=== PATIENT | male | born 1945 | race Caucasian/White ===

== ENCOUNTER 2016-08-08 08:00 | Outpatient (CLI) | payer MEDICARE, OTHER | END 2016-08-08 08:01 | disposition home or self-care (01) | DX: I80.209 Phlebitis and thrombophlebitis of unspecified deep vessels of unspecified lower extremity (principal) ==

== ENCOUNTER 2016-08-29 11:08 | Outpatient (CLI) | payer MEDICARE, OTHER | END 2016-08-29 11:09 | disposition home or self-care (01) | DX: I80.209 Phlebitis and thrombophlebitis of unspecified deep vessels of unspecified lower extremity (principal) ==

== ENCOUNTER 2016-09-05 14:35 | Outpatient (CLI) | payer MEDICARE, OTHER | END 2016-09-05 14:36 | disposition home or self-care (01) | DX: I80.209 Phlebitis and thrombophlebitis of unspecified deep vessels of unspecified lower extremity (principal) ==

== ENCOUNTER 2016-09-26 08:00 | Outpatient (CLI) | payer MEDICARE, OTHER | END 2016-09-26 08:01 | disposition home or self-care (01) | DX: I80.209 Phlebitis and thrombophlebitis of unspecified deep vessels of unspecified lower extremity (principal) ==

== ENCOUNTER 2016-10-10 13:54 | Outpatient (CLI) | payer MEDICARE, OTHER | END 2016-10-10 13:55 | disposition home or self-care (01) | DX: I80.209 Phlebitis and thrombophlebitis of unspecified deep vessels of unspecified lower extremity (principal) ==

== ENCOUNTER 2016-10-23 10:28 | Outpatient (CLI) | payer MEDICARE, OTHER | END 2016-10-23 10:29 | disposition home or self-care (01) | DX: I80.209 Phlebitis and thrombophlebitis of unspecified deep vessels of unspecified lower extremity (principal); E11.9 Type 2 diabetes mellitus without complications; I10 Essential (primary) hypertension; E78.1 Pure hyperglyceridemia; F17.210 Nicotine dependence, cigarettes, uncomplicated ==

== ENCOUNTER 2016-11-06 08:00 | Outpatient (CLI) | payer MEDICARE, OTHER | END 2016-11-06 08:01 | disposition home or self-care (01) | DX: I80.209 Phlebitis and thrombophlebitis of unspecified deep vessels of unspecified lower extremity (principal) ==

== ENCOUNTER 2016-11-28 13:23 | Outpatient (CLI) | payer MEDICARE, OTHER | END 2016-11-28 23:59 | disposition home or self-care (01) | DX: I80.209 Phlebitis and thrombophlebitis of unspecified deep vessels of unspecified lower extremity (principal) ==

== ENCOUNTER 2016-12-20 14:17 | Outpatient (CLI) | payer MEDICARE, OTHER | END 2016-12-20 14:18 | disposition home or self-care (01) | LOC: LAB.N 14:17 | PROVIDERS: ATTEND Family Medicine | DX: I80.209 Phlebitis and thrombophlebitis of unspecified deep vessels of unspecified lower extremity (principal) | CPT/HCPCS: 85610 ==

== ENCOUNTER 2016-12-27 13:59 | Outpatient (CLI) | payer MEDICARE, OTHER | END 2016-12-27 14:00 | LOC: LAB.N 13:59 | PROVIDERS: ATTEND Family Medicine | DX: I80.209 Phlebitis and thrombophlebitis of unspecified deep vessels of unspecified lower extremity (principal) | CPT/HCPCS: 85610 ==

== ENCOUNTER 2016-12-27 15:25 | Outpatient (CLI) | payer MEDICARE, OTHER ==
--- NOTE | 2016-12-29 15:45 | XRAY Report ---
LUMBAR SPINE THREE VIEWS: 12/27/2016 CLINICAL HISTORY: Strain of muscle, fascia and tendon of the lower back. COMPARISON: None. FINDINGS: Five [id number] lumbar-type vertebrae are noted. Mild anterior spurring is noted in the lumbar spine. Severe disk space narrowing is noted at L2-3. Moderate to severe disk space narrowing is noted at L3-4, L4-5 and L5-S1. The SI joints show minimal narrowing of the right SI joint. Vascular calcification in the abdominal aorta that appears to outline an aneurysm with an AP diameter of 4.9 cm and a length of 13 cm. There is a stent along the anterior aspect of the aneurysm that appears to extend into the proximal aspect of the right common iliac artery. This represents an iliac artery stent. The size of the aneurysm may have increased since preceding exam of 06/29/2015. A contrast enhanced CT exam of the abdomen and pelvis should be considered for reevaluation of the aneurysm. In addition, there has been progression of degenerative disk disease in the lumbar spine since preceding abdominal and pelvic CT of 06/29/2015. There is increased disk space narrowing at L3-4 and L4-5. IMPRESSION: 1. SIGNIFICANT DEGENERATIVE DISK DISEASE IS NOTED AT L2-3, L3-4, L4-5 AND L5- S1. PROGRESSION OF DEGENERATIVE DISK DISEASE AT L3-4 AND L4-5 IS SEEN COMPARED TO PREVIOUS ABDOMINAL AND PELVIC CT EXAM OF 06/29/2015. 2. 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 THE SIZE OF THE ANEURYSM MAY BE INCREASED SINCE PRECEDING ABDOMINAL AND PELVIC CT EXAM. RECOMMEND A CONTRAST ENHANCED ABDOMINAL AND PELVIC CT BE CONSIDERED FOR REEVALUATION OF THE ABDOMINAL AORTIC ANEURYSM SIZE. 3. RIGHT COMMON ILIAC ARTERY STENT IS ONCE AGAIN NOTED IN PLACE. JOB #: [id number] EXT JOB #: [id number] NINA
== END 2016-12-27 15:26 | disposition home or self-care (01) ==
LOC: DI.N 15:25
PROVIDERS: ATTEND Family Medicine
DX: M51.36 Other intervertebral disc degeneration, lumbar region (principal); M51.37 Other intervertebral disc degeneration, lumbosacral region; I71.4 Abdominal aortic aneurysm, without rupture
CPT/HCPCS: 72100; 85610

== ENCOUNTER 2017-01-02 08:00 | Outpatient (CLI) | payer MEDICARE, OTHER | END 2017-01-02 08:01 | disposition home or self-care (01) | LOC: LAB.N 08:00 | PROVIDERS: ATTEND Family Medicine | DX: I80.209 Phlebitis and thrombophlebitis of unspecified deep vessels of unspecified lower extremity (principal) | CPT/HCPCS: 85610 ==

== ENCOUNTER 2017-01-10 12:59 | Outpatient (CLI) | payer MEDICARE, OTHER | END 2017-01-10 13:00 | disposition home or self-care (01) | LOC: LAB.N 12:59 | PROVIDERS: ATTEND Family Medicine | DX: I80.209 Phlebitis and thrombophlebitis of unspecified deep vessels of unspecified lower extremity (principal) | CPT/HCPCS: 85610 ==

== ENCOUNTER 2017-01-18 16:53 | Outpatient (CLI) | payer MEDICARE, OTHER ==
--- NOTE | 2017-01-19 10:53 | Ultrasound Report ---
AORTA DUPLEX: 01/18/2017 CLINICAL INDICATION: Aneurysm. The patient also reports history of aortobi-femoral bypass grafting. TECHNIQUE: Real-time sonographic vascular imaging was performed by the work and family life consultant through the aorta utilizing both color-flow and Doppler spectral analysis. Multiple dairy supplies sales representative static images were saved for review. FINDINGS: The abdominal aorta measures 2.2 cm proximally, and 2.0 cm in the mid portion. An aortobi -femoral bypass graft is noted. There is aneurysmal dilatation of the distal abdominal aorta, measur ing up to 4.6 cm in caliber, but no flow is seen in this portion of the abdominal aorta, which is dis klaudia to the takeoff of the bypass graft. The iliac grafts are normal in caliber. The [place] iliacs a re not well visualized. Velocities are unremarkable. No free fluid is seen. IMPRESSION: PREVIOUS AORTOBI-FEMORAL BYPASS GRAFT. ANEURYSMAL DILATATION OF THE DISTAL ABDOMINAL AO RTA, BUT THERE IS NO EVIDENCE OF FLOW IN THE DISTAL ABDOMINAL AORTIC ANEURYSM, WHICH IS DISTAL TO THE TAKEOFF OF THE AORTOBI-FEMORAL BYPASS GRAFT. JOB #: [id number] EXT JOB #:[id number]
== END 2017-01-18 16:54 | disposition home or self-care (01) ==
LOC: DI 16:53
PROVIDERS: ATTEND Family Medicine
DX: I71.4 Abdominal aortic aneurysm, without rupture (principal)
CPT/HCPCS: 93979

== ENCOUNTER 2017-01-23 08:00 | Outpatient (CLI) | payer MEDICARE, OTHER | END 2017-01-23 08:01 | disposition home or self-care (01) | LOC: LAB.N 08:00 | PROVIDERS: ATTEND Family Medicine | DX: I80.209 Phlebitis and thrombophlebitis of unspecified deep vessels of unspecified lower extremity (principal) | CPT/HCPCS: 85610 ==

== ENCOUNTER 2017-01-25 16:10 | Emergency (ER) | payer MEDICARE, OTHER ==
[2017-01-25 16:24] VITALS: BP 120/73
[2017-01-25 16:52] LABS: INR 1.3 (0.8-1.2); PT - PROTHROMBIN TIME 14.6 secs (9.9-12.6)
--- NOTE | 2017-01-25 17:45 | Ultrasound Preliminary Report ---
Exam: US Duplex Ext Veins Left IMPRESSION: No evidence for deep venous thrombosis. [facility] SITE ID: [id number]
--- NOTE | 2017-01-25 17:47 | Ultrasound Report ---
EXAM: LEFT LOWER EXTREMITY VENOUS ULTRASOUND EXAM DATE: 01/25/2017 05:20 PM. CLINICAL HISTORY: LLE pain. COMPARISON: None. TECHNIQUE: Real-time sonographic vascular imaging was performed by the editor school photograph through the lower extremity utilizing both color-flow and Doppler spectral analysis. Multiple fulfillment representative static terrance ges were saved for review. FINDINGS: Common Femoral Vein (CFV): Normal. CFV-GSV Junction: Normal. Profunda Femoral Vein (PFV): Normal. Femoral Vein (FV) Prox: Normal. Femoral Vein (FV) Mid: Normal. Femoral Vein (FV) Dist: Normal. Popliteal Vein: Normal. Posterior Tibial Veins: Normal. Peroneal Veins: Normal. Contralateral Side CFV: Normal. Other: None. IMPRESSION: No evidence for deep venous thrombosis. [facility] Referring Provider Line: [phone] SITE ID: [id number]
--- NOTE | 2017-01-25 17:56 | ED Physician Documentation ---
History of Present Illness - Stated complaint Stated Complaint: LLE PAIN - Chief complaint Chief Complaint: General - History obtained from History obtained from: Patient, Family - History of Present Illness Timing: How many weeks ago (1) Pain level max: 3 Pain level now: 2 Improved by: rest Worsened by: movement - Additonal information Additional information: Patient is a 71-year-old male who presents to the emergency department with left calf pain for the past week. Has had blood clots in the right lower extremity before and is on warfarin currently. His INR was 4.1, 2 days ago, so he stopped his warfarin for the last 2 days. States he is concerned that he may have another blood clot in the left lower extremity. No chest pain. No shortness of breath. Review of Systems Ten Systems: 10 systems reviewed and negative Constitutional: denies: Fever, Chills Nose: denies: Rhinorrhea / runny nose, Congestion Throat: denies: Sore throat Cardiac: denies: Chest pain / pressure, Palpitations Respiratory: denies: Dyspnea, Cough, Wheezing GI: denies: Abdominal Pain, Nausea, Vomiting, Diarrhea Skin: denies: Rash Musculoskeletal: denies: Neck pain, Back pain Neurologic: denies: Headache PD PAST MEDICAL HISTORY - Past Medical History Cardiovascular: Hypertension, High cholesterol, Peripheral Vascular Disease, Deep vein thrombosis Respiratory: COPD, Other Neuro: Peripheral neuropathy Endocrine/Autoimmune: Type 2 diabetes GI: GI bleed, Ulcers : None HEENT: Chronic vision loss Musculoskeletal: Osteoarthritis, Chronic back pain Derm: Other - Past Surgical History Past Surgical History: Yes General: Bowel surgery, EGD Ortho: Amputation /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: Other Cardiovascular: CABG, Coronary stent, Cardiac catheterization, Vascular surgery , Angioplasty, Fempop bypass, Other - Present Medications Home Medications: Ambulatory Orders Medication Instructions Recorded Confirmed Aspirin [Aspir 81] 81 mg PO BID 10/02/13 11/13/14 Gemfibrozil [Lopid] 600 mg PO BIDAC 10/02/13 11/13/14 Lisinopril 10 mg PO HS 10/02/13 11/13/14 Sertraline [Zoloft] 100 mg PO DAILY 10/02/13 11/13/14 Warfarin Sodium [Coumadin] 9 mg PO HS 10/02/13 11/13/14 Bisacodyl [Laxative] 1 ea PO QPM PRN 02/23/14 11/13/14 Calcium Carbonate [Calcium] 600 mg PO BID 02/23/14 11/13/14 raNITIdine [Zantac] 150 mg PO DAILY PRN 02/23/14 11/13/14 Albuterol Sulfate [Albuterol 1 inh INH Q4HR 11/13/14 11/13/14 Sulfate Hfa] Enoxaparin [Lovenox] 1 syr SQ DAILY 11/13/14 11/13/14 Fenofibrate 1 tab PO DAILY 11/13/14 11/13/14 [place]-3/Dha/Epa/Fish Oil [Fish Oil] 2 tab PO DAILY 11/13/14 11/13/14 Pravastatin Sodium 40 mg PO DAILY 11/13/14 11/13/14 Tiotropium [place] [Spiriva] 1 inh INH DAILY 11/13/14 11/13/14 - Allergies Allergies/Adverse Reactions: Allergies Allergy/AdvReac Type Severity Reaction Status Date / Time ezetimibe [From Zetia] Allergy Mild Itching Verified 01/25/17 16:24 methocarbamol [From Robaxin] Allergy resp Verified 01/25/17 16:24 morphine Allergy itches Verified 01/25/17 16:24 vancomycin Allergy Unknown Verified 01/25/17 16:24 atorvastatin calcium * AdvReac Intermediate Unknown Verified 01/25/17 16:24 [From Lipitor] simvastatin [From Zocor] AdvReac Intermediate Unknown Verified 01/25/17 16:24 tape adhesive Allergy Itching Uncoded 01/25/17 16:24 - Social History Does the pt smoke?: Yes Smoking Status: Current every day smoker Does the pt drink ETOH?: No Does the pt have substance abuse?: No - POLST Patient has POLST: No PD ED PE NORMAL - Vitals Vital signs reviewed: Yes - General General: Alert and oriented X 3, No acute distress, Well developed/nourished - HEENT HEENT: Moist mucous membranes - Neck Neck: Supple, no meningeal sign - Cardiac Cardiac: RRR, Strong equal pulses - Respiratory Respiratory: No respiratory distress, Clear bilaterally - Abdomen Abdomen: Soft, Non tender, Non distended - Derm Derm: Warm and dry - Extremities Extremities: Normal ROM s pain, No edema, No calf tenderness / cord - Neuro Neuro: Alert and oriented X 3 - Psych Psych: Normal mood, Normal affect Results - Vitals Vitals: Vital Signs - 24 hr 01/25/17 16:18 Temperature 36.7 C Heart Rate 69 Respiratory 18 Rate Blood Pressure 120/73 O2 Saturation 97 Oxygen O2 Source Room air - Labs Labs: Laboratory Tests 01/25/17 16:39 PT 14.6 H INR 1.3 H - Rads (name of study) Left lower extremity duplex ultrasound Radiology: Prelim report reviewed, EMP read contemporaneously, See rad report ( No DVT) PD MEDICAL DECISION MAKING - ED course Complexity details: reviewed results, re-evaluated patient, considered differential, d/w patient, d/w family ED course: Patient is a 71-year-old gentleman who presents to the emergency department with left calf pain for the past week. This is been mostly intermittent and cramping. Concerned as he has had DVTs in the right lower extremity before. He has held his warfarin for the last 2 days and will restart this tonight. No acute findings on ultrasound. Ambulating well in the emergency department. Will hold any further blood work or testing at this time and see how he progresses over the next few days. Patient and family counseled regarding signs and symptoms for which I believe and urgent re-evaluation would be necessary. Patient with good understanding of and agreement to plan and is comfortable going home at this time This document was made in part using voice recognition software. While efforts are made to proofread this document, sound alike and grammatical errors may occur. Departure - Departure Disposition: 01 Home, Self Care Clinical Impression: Muscle cramp Condition: Good Instructions: ED Muscle Pain Leg Cramps Follow-Up: your,doctor in 1 week [Other] Comments: Restart your warfarin today. Return if you worsen. Your ultrasound is normal today Discharge Date/Time: 01/25/17 18:15
== END 2017-01-25 18:15 | disposition home or self-care (01) ==
LOC: ED 16:10
DX: R25.2 Cramp and spasm (principal); Z87.11 Personal history of peptic ulcer disease; Z86.718 Personal history of other venous thrombosis and embolism; Z79.01 Long term (current) use of anticoagulants; I10 Essential (primary) hypertension; E78.00 Pure hypercholesterolemia, unspecified; E11.51 Type 2 diabetes mellitus with diabetic peripheral angiopathy without gangrene; E11.42 Type 2 diabetes mellitus with diabetic polyneuropathy; J44.9 Chronic obstructive pulmonary disease, unspecified; M19.90 Unspecified osteoarthritis, unspecified site; Z79.82 Long term (current) use of aspirin; F17.200 Nicotine dependence, unspecified, uncomplicated
CPT/HCPCS: 36415; 85610; 99283

== ENCOUNTER 2017-01-31 13:35 | Outpatient (CLI) | payer MEDICARE, OTHER | END 2017-01-31 13:36 | disposition home or self-care (01) | LOC: LAB.N 13:35 | PROVIDERS: ATTEND Family Medicine | DX: I80.209 Phlebitis and thrombophlebitis of unspecified deep vessels of unspecified lower extremity (principal) | CPT/HCPCS: 85610 ==

== ENCOUNTER 2017-02-07 23:56 | Outpatient (CLI) | payer MEDICARE, OTHER | END 2017-02-07 23:57 | disposition home or self-care (01) | LOC: LAB.N 23:56 | PROVIDERS: ATTEND Family Medicine | DX: I80.209 Phlebitis and thrombophlebitis of unspecified deep vessels of unspecified lower extremity (principal) | CPT/HCPCS: 85610 ==

== ENCOUNTER 2017-02-14 13:52 | Outpatient (CLI) | payer MEDICARE, OTHER | END 2017-02-14 13:53 | LOC: LAB.N 13:52 | PROVIDERS: ATTEND Family Medicine | DX: I80.209 Phlebitis and thrombophlebitis of unspecified deep vessels of unspecified lower extremity (principal) | CPT/HCPCS: 85610 ==

== ENCOUNTER 2017-02-19 08:14 | Outpatient (CLI) | payer MEDICARE, OTHER | END 2017-02-19 08:15 | disposition home or self-care (01) | LOC: LAB.N 08:14 | PROVIDERS: ATTEND Family Medicine | DX: I80.209 Phlebitis and thrombophlebitis of unspecified deep vessels of unspecified lower extremity (principal) | CPT/HCPCS: 85610 ==

== ENCOUNTER 2017-02-26 13:16 | Outpatient (CLI) | payer MEDICARE, OTHER | END 2017-02-26 23:59 | disposition home or self-care (01) | LOC: LAB.N 13:16 | PROVIDERS: ATTEND Family Medicine | DX: I80.209 Phlebitis and thrombophlebitis of unspecified deep vessels of unspecified lower extremity (principal) | CPT/HCPCS: 85610 ==

== ENCOUNTER 2017-03-07 08:00 | Outpatient (CLI) | payer MEDICARE, OTHER | END 2017-03-07 08:01 | disposition home or self-care (01) | LOC: LAB.N 08:00 | PROVIDERS: ATTEND Family Medicine | DX: I80.209 Phlebitis and thrombophlebitis of unspecified deep vessels of unspecified lower extremity (principal) | CPT/HCPCS: 85610 ==

== ENCOUNTER 2017-03-12 08:00 | Outpatient (CLI) | payer MEDICARE, OTHER | END 2017-03-12 08:01 | disposition home or self-care (01) | LOC: LAB.N 08:00 | PROVIDERS: ATTEND Family Medicine | DX: I80.209 Phlebitis and thrombophlebitis of unspecified deep vessels of unspecified lower extremity (principal) | CPT/HCPCS: 85610 ==

== ENCOUNTER 2017-03-19 08:00 | Outpatient (CLI) | payer MEDICARE, OTHER | END 2017-03-19 08:01 | disposition home or self-care (01) | LOC: LAB.N 08:00 | PROVIDERS: ATTEND Family Medicine | DX: I80.209 Phlebitis and thrombophlebitis of unspecified deep vessels of unspecified lower extremity (principal) | CPT/HCPCS: 85610 ==

== ENCOUNTER 2017-04-05 11:22 | Outpatient (CLI) | payer MEDICARE, OTHER | END 2017-04-05 11:23 | disposition home or self-care (01) | LOC: LAB.N 11:22 | PROVIDERS: ATTEND Family Medicine | DX: I80.209 Phlebitis and thrombophlebitis of unspecified deep vessels of unspecified lower extremity (principal) | CPT/HCPCS: 85610 ==

== ENCOUNTER 2017-04-19 13:42 | Outpatient (CLI) | payer MEDICARE, OTHER | END 2017-04-19 13:43 | LOC: LAB.N 13:42 | PROVIDERS: ATTEND Family Medicine | DX: I80.209 Phlebitis and thrombophlebitis of unspecified deep vessels of unspecified lower extremity (principal) | CPT/HCPCS: 85610 ==

== ENCOUNTER 2017-05-15 08:00 | Outpatient (CLI) | payer MEDICARE, OTHER | END 2017-05-15 08:01 | disposition home or self-care (01) | LOC: LAB.N 08:00 | PROVIDERS: ATTEND Family Medicine | DX: I80.209 Phlebitis and thrombophlebitis of unspecified deep vessels of unspecified lower extremity (principal) | CPT/HCPCS: 85610 ==

== ENCOUNTER 2017-06-29 08:00 | Outpatient (CLI) | payer MEDICARE, OTHER ==
[2017-06-29 14:43] LABS: BASOPHILS # (AUTO) 0.1 10^3/uL (0.0-0.1); BASOPHILS % (AUTO) 0.7 %; EOSINOPHILS # (AUTO) 0.1 10^3/uL (0.0-0.7); EOSINOPHILS % (AUTO) 1.2 %; HGB - HEMOGLOBIN 17.8 g/dL (14.0-18.0); LYMPHOCYTES % (AUTO) 28.5 %; MEAN CORPUSCULAR HEMOGLOBIN 31.8 pg (27.0-31.0); MEAN CORPUSCULAR HGB CONC 34.3 g/dL (32.0-36.0); MEAN CORPUSCULAR VOLUME 92.8 fL (80.0-94.0); MONOCYTES # (AUTO) 0.7 10^3/uL (0.0-1.0); MONOCYTES % (AUTO) 6.9 %; NEUTROPHILS # (AUTO) 6.5 10^3/uL (1.5-6.6); NEUTROPHILS % (AUTO) 62.7 %; NUCLEATED RED BLOOD CELLS AUTO 0.1 /100WBC; RED CELL DISTRIBUTION WIDTH 13.6 % (12.0-15.0); UNCORRECTED WHITE BLOOD COUNT 10.4 x10^3/uL; WHITE BLOOD COUNT 10.4 x10^3/uL (4.8-10.8)
== END 2017-06-29 08:01 | disposition home or self-care (01) ==
LOC: LAB.N 08:00
PROVIDERS: ATTEND Radiology Vascular & Interventional Radiology
DX: I72.4 Aneurysm of artery of lower extremity (principal); I80.209 Phlebitis and thrombophlebitis of unspecified deep vessels of unspecified lower extremity
CPT/HCPCS: 36415; 85025; 85610

== ENCOUNTER 2017-07-06 11:23 | Outpatient (CLI) | payer MEDICARE, OTHER | END 2017-07-06 11:24 | disposition home or self-care (01) | LOC: LAB.N 11:23 | PROVIDERS: ATTEND Family Medicine | DX: I80.209 Phlebitis and thrombophlebitis of unspecified deep vessels of unspecified lower extremity (principal) | CPT/HCPCS: 85610 ==

== ENCOUNTER 2017-07-09 09:50 | Outpatient (CLI) | payer MEDICARE, OTHER | END 2017-07-09 09:51 | disposition home or self-care (01) | LOC: LAB.N 09:50 | PROVIDERS: ATTEND Family Medicine | DX: I80.209 Phlebitis and thrombophlebitis of unspecified deep vessels of unspecified lower extremity (principal) | CPT/HCPCS: 85610 ==

== ENCOUNTER 2017-07-11 10:18 | Outpatient (CLI) | payer MEDICARE, OTHER | END 2017-07-11 10:19 | disposition home or self-care (01) | LOC: LAB.N 10:18 | PROVIDERS: ATTEND Family Medicine | DX: I80.209 Phlebitis and thrombophlebitis of unspecified deep vessels of unspecified lower extremity (principal) | CPT/HCPCS: 85610 ==

== ENCOUNTER 2017-07-13 10:43 | Outpatient (CLI) | payer MEDICARE, OTHER | END 2017-07-13 10:44 | disposition home or self-care (01) | LOC: LAB.N 10:43 | PROVIDERS: ATTEND Family Medicine | DX: I80.209 Phlebitis and thrombophlebitis of unspecified deep vessels of unspecified lower extremity (principal) | CPT/HCPCS: 85610 ==

== ENCOUNTER 2017-07-16 09:54 | Outpatient (CLI) | payer MEDICARE, OTHER | END 2017-07-16 09:55 | disposition home or self-care (01) | LOC: LAB.N 09:54 | PROVIDERS: ATTEND Family Medicine | DX: I80.209 Phlebitis and thrombophlebitis of unspecified deep vessels of unspecified lower extremity (principal) | CPT/HCPCS: 85610 ==

== ENCOUNTER 2017-07-23 10:16 | Outpatient (CLI) | payer MEDICARE, OTHER | END 2017-07-23 10:17 | disposition home or self-care (01) | LOC: LAB.N 10:16 | PROVIDERS: ATTEND Family Medicine | DX: I80.209 Phlebitis and thrombophlebitis of unspecified deep vessels of unspecified lower extremity (principal) | CPT/HCPCS: 85610 ==

== ENCOUNTER 2017-08-07 08:00 | Outpatient (CLI) | payer MEDICARE, OTHER | END 2017-08-07 08:01 | disposition home or self-care (01) | LOC: LAB.N 08:00 | PROVIDERS: ATTEND Family Medicine | DX: I80.209 Phlebitis and thrombophlebitis of unspecified deep vessels of unspecified lower extremity (principal) | CPT/HCPCS: 85610 ==

== ENCOUNTER 2017-08-14 14:57 | Outpatient (CLI) | payer MEDICARE, OTHER | END 2017-08-14 14:58 | disposition home or self-care (01) | LOC: LAB.N 14:57 | PROVIDERS: ATTEND Family Medicine | DX: I80.209 Phlebitis and thrombophlebitis of unspecified deep vessels of unspecified lower extremity (principal) | CPT/HCPCS: 85610 ==

== ENCOUNTER 2017-08-28 08:00 | Outpatient (CLI) | payer MEDICARE, OTHER | END 2017-08-28 08:01 | disposition home or self-care (01) | LOC: LAB.N 08:00 | PROVIDERS: ATTEND Family Medicine | DX: I80.209 Phlebitis and thrombophlebitis of unspecified deep vessels of unspecified lower extremity (principal) | CPT/HCPCS: 85610 ==

== ENCOUNTER 2017-09-11 08:00 | Outpatient (CLI) | payer MEDICARE, OTHER | END 2017-09-11 08:01 | disposition home or self-care (01) | LOC: LAB.N 08:00 | PROVIDERS: ATTEND Family Medicine | DX: I80.209 Phlebitis and thrombophlebitis of unspecified deep vessels of unspecified lower extremity (principal) | CPT/HCPCS: 85610 ==

== ENCOUNTER 2017-09-18 08:00 | Outpatient (CLI) | payer MEDICARE, OTHER | END 2017-09-18 08:01 | disposition home or self-care (01) | LOC: LAB.N 08:00 | PROVIDERS: ATTEND Family Medicine | DX: I80.209 Phlebitis and thrombophlebitis of unspecified deep vessels of unspecified lower extremity (principal) | CPT/HCPCS: 85610 ==

== ENCOUNTER 2017-10-02 10:21 | Outpatient (CLI) | payer MEDICARE, OTHER | END 2017-10-02 10:22 | disposition home or self-care (01) | LOC: LAB.N 10:21 | PROVIDERS: ATTEND Family Medicine | DX: I80.209 Phlebitis and thrombophlebitis of unspecified deep vessels of unspecified lower extremity (principal) | CPT/HCPCS: 85610 ==

== ENCOUNTER 2017-10-04 08:00 | Outpatient (CLI) | payer MEDICARE, OTHER ==
[2017-10-04 19:07] LABS: BASOPHILS # (AUTO) 0.1 10^3/uL (0.0-0.1); BASOPHILS % (AUTO) 0.7 %; EOSINOPHILS # (AUTO) 0.2 10^3/uL (0.0-0.7); EOSINOPHILS % (AUTO) 1.6 %; HGB - HEMOGLOBIN 17.4 g/dL (14.0-18.0); LYMPHOCYTES # (AUTO) 3.4 10^3/uL (1.5-3.5); MEAN CORPUSCULAR HGB CONC 33.1 g/dL (32.0-36.0); MEAN CORPUSCULAR VOLUME 93.4 fL (80.0-94.0); MEAN PLATELET VOLUME 8.5 fL (7.4-11.4); MONOCYTES # (AUTO) 0.7 10^3/uL (0.0-1.0); NEUTROPHILS # (AUTO) 5.1 10^3/uL (1.5-6.6); NEUTROPHILS % (AUTO) 54.7 %; PLT - PLATELET COUNT 212 10^3/uL (130-450); RED BLOOD COUNT 5.62 10^6/uL (4.70-6.10); RED CELL DISTRIBUTION WIDTH 14.4 % (12.0-15.0); WHITE BLOOD COUNT 9.3 x10^3/uL (4.8-10.8)
[2017-10-05 10:05] LABS: ALBUMIN/GLOBULIN RATIO 1.3 (1.0-2.2); ALKALINE PHOSPHATASE 60 IU/L (42-121); ALT ALANINE AMINOTRANSFERASE 30 IU/L (10-60); AST ASPARTATE AMINOTRANSFERASE 24 IU/L (10-42); BILIRUBIN,TOTAL 0.5 mg/dL (0.2-1.0); BUN - BLOOD UREA NITROGEN 16 mg/dL (6-20); CALCIUM 9.1 mg/dL (8.5-10.3); CARBON DIOXIDE - CO2 28 mmol/L (21-32); CHLORIDE 105 mmol/L (101-111); CHOL/HDL RATIO 5.3 (<5.0); CHOLESTEROL 164 mg/dL; CREATININE 0.8 mg/dL (0.6-1.2); GFR - MDRD 95 (>89); GLUCOSE 98 mg/dL (70-100); HDL CHOLESTEROL 31 mg/dL; LDL CHOLESTEROL,CALCULATED 100 mg/dL; LDL/HDL RATIO 3.2 (<3.6); SODIUM 140 mmol/L (135-145); TOTAL PROTEIN 7.2 g/dL (6.7-8.2); VLDL CHOLESTEROL 33 mg/dL
[2017-10-05 10:18] LABS: HEMOGLOBIN A1C 0.82 g/dL; HEMOGLOBIN A1C % 6.1 % (4.6-6.2)
== END 2017-10-04 23:59 | disposition home or self-care (01) ==
LOC: LAB.N 08:00
PROVIDERS: ATTEND Family Medicine
DX: E11.9 Type 2 diabetes mellitus without complications (principal); I10 Essential (primary) hypertension; E78.1 Pure hyperglyceridemia
CPT/HCPCS: 36415; 80053; 80061; 83036; 83721; 85025

== ENCOUNTER 2017-10-25 11:02 | Outpatient (CLI) | payer MEDICARE, OTHER ==
--- NOTE | 2017-10-25 16:41 | XRAY Report ---
THREE VIEW LUMBAR SPINE: 10/25/2017 CLINICAL INDICATION: Chronic back pain. COMPARISON: 12/27/2016. FINDINGS: AP, lateral, coned down views of the lumbar spine demonstrate moderate degenerative disk and facet disease. There is no evidence of interval compression fracture. Vascular calcifications are again noted. The bowel gas pattern appears unremarkable. IMPRESSION: MODERATE DEGENERATIVE CHANGES. NO EVIDENCE OF FRACTURE. TD: 10/25/2017 16:41
== END 2017-10-25 11:03 | disposition home or self-care (01) ==
LOC: DI.N 11:02
PROVIDERS: ATTEND Family Medicine
DX: M51.36 Other intervertebral disc degeneration, lumbar region (principal); M47.896 Other spondylosis, lumbar region
CPT/HCPCS: 72100

== ENCOUNTER 2017-10-30 10:09 | Outpatient (CLI) | payer MEDICARE, OTHER | END 2017-10-30 10:10 | disposition home or self-care (01) | LOC: LAB.N 10:09 | PROVIDERS: ATTEND Family Medicine | DX: I80.209 Phlebitis and thrombophlebitis of unspecified deep vessels of unspecified lower extremity (principal) | CPT/HCPCS: 85610 ==

== ENCOUNTER 2017-11-06 10:36 | Outpatient (CLI) | payer MEDICARE, OTHER | END 2017-11-06 10:37 | disposition home or self-care (01) | LOC: LAB.N 10:36 | PROVIDERS: ATTEND Family Medicine | DX: I80.209 Phlebitis and thrombophlebitis of unspecified deep vessels of unspecified lower extremity (principal) | CPT/HCPCS: 85610 ==

== ENCOUNTER 2017-11-13 08:00 | Outpatient (CLI) | payer MEDICARE, OTHER | END 2017-11-13 08:01 | disposition home or self-care (01) | LOC: LAB.N 08:00 | PROVIDERS: ATTEND Family Medicine | DX: I80.209 Phlebitis and thrombophlebitis of unspecified deep vessels of unspecified lower extremity (principal) | CPT/HCPCS: 85610 ==

== ENCOUNTER 2017-11-27 08:00 | Outpatient (CLI) | payer MEDICARE, OTHER | END 2017-11-27 08:01 | disposition home or self-care (01) | LOC: LAB.N 08:00 | PROVIDERS: ATTEND Family Medicine | DX: I80.209 Phlebitis and thrombophlebitis of unspecified deep vessels of unspecified lower extremity (principal) | CPT/HCPCS: 85610 ==

== ENCOUNTER 2017-12-11 11:30 | Outpatient (CLI) | payer MEDICARE, OTHER | END 2017-12-11 11:45 | disposition home or self-care (01) | LOC: RT.N 11:30 | PROVIDERS: ATTEND Family Medicine | DX: R55 Syncope and collapse (principal) | CPT/HCPCS: 93005 ==

== ENCOUNTER 2017-12-12 12:57 | Outpatient (CLI) | payer MEDICARE, OTHER ==
[2017-12-12 18:55] LABS: BASOPHILS # (AUTO) 0.1 10^3/uL (0.0-0.1); BASOPHILS % (AUTO) 0.6 %; EOSINOPHILS # (AUTO) 0.2 10^3/uL (0.0-0.7); EOSINOPHILS % (AUTO) 1.7 %; HGB - HEMOGLOBIN 16.8 g/dL (14.0-18.0); LYMPHOCYTES # (AUTO) 3.1 10^3/uL (1.5-3.5); LYMPHOCYTES % (AUTO) 32.5 %; MEAN CORPUSCULAR HEMOGLOBIN 31.7 pg (27.0-31.0); MEAN CORPUSCULAR HGB CONC 33.9 g/dL (32.0-36.0); MEAN CORPUSCULAR VOLUME 93.6 fL (80.0-94.0); MEAN PLATELET VOLUME 8.7 fL (7.4-11.4); MONOCYTES # (AUTO) 0.6 10^3/uL (0.0-1.0); MONOCYTES % (AUTO) 6.9 %; NEUTROPHILS # (AUTO) 5.5 10^3/uL (1.5-6.6); NEUTROPHILS % (AUTO) 58.3 %; PLT - PLATELET COUNT 215 10^3/uL (130-450); RED BLOOD COUNT 5.31 10^6/uL (4.70-6.10); RED CELL DISTRIBUTION WIDTH 14.4 % (12.0-15.0); WHITE BLOOD COUNT 9.4 x10^3/uL (4.8-10.8)
[2017-12-12 19:13] LABS: HB2 TOTAL 19.4 g/dL; HEMOGLOBIN A1C 0.77 g/dL; HEMOGLOBIN A1C % 5.8 % (4.6-6.2)
[2017-12-12 19:23] LABS: ALBUMIN 3.9 g/dL (3.2-5.5); ALBUMIN/GLOBULIN RATIO 1.2 (1.0-2.2); ALKALINE PHOSPHATASE 58 IU/L (42-121); ALT ALANINE AMINOTRANSFERASE 18 IU/L (10-60); AST ASPARTATE AMINOTRANSFERASE 18 IU/L (10-42); BILIRUBIN,TOTAL 0.7 mg/dL (0.2-1.0); BUN - BLOOD UREA NITROGEN 16 mg/dL (6-20); CALCIUM 8.7 mg/dL (8.5-10.3); CARBON DIOXIDE - CO2 27 mmol/L (21-32); CHLORIDE 104 mmol/L (101-111); CHOL/HDL RATIO 6.4 (<5.0); CHOLESTEROL 187 mg/dL; CREATININE 0.7 mg/dL (0.6-1.2); GFR - MDRD 111 (>89); GLUCOSE 92 mg/dL (70-100); HDL CHOLESTEROL 29 mg/dL; LDL CHOLESTEROL,CALCULATED 122 mg/dL; LDL/HDL RATIO 4.2 (<3.6); SODIUM 139 mmol/L (135-145); TOTAL PROTEIN 7.2 g/dL (6.7-8.2); VLDL CHOLESTEROL 36 mg/dL
== END 2017-12-12 12:58 | disposition home or self-care (01) ==
LOC: LAB.N 12:57
PROVIDERS: ATTEND Family Medicine
DX: E11.9 Type 2 diabetes mellitus without complications (principal); E78.1 Pure hyperglyceridemia; I80.209 Phlebitis and thrombophlebitis of unspecified deep vessels of unspecified lower extremity; I10 Essential (primary) hypertension
CPT/HCPCS: 36415; 80053; 80061; 83036; 83721; 85025; 85610

== ENCOUNTER 2017-12-14 13:01 | Outpatient (CLI) | payer MEDICARE, OTHER | END 2017-12-14 13:02 | disposition home or self-care (01) | LOC: LAB.N 13:01 | PROVIDERS: ATTEND Family Medicine | DX: I80.209 Phlebitis and thrombophlebitis of unspecified deep vessels of unspecified lower extremity (principal) | CPT/HCPCS: 85610 ==

== ENCOUNTER 2017-12-24 08:00 | Outpatient (CLI) | payer MEDICARE, OTHER | END 2017-12-24 08:01 | LOC: LAB.N 08:00 | PROVIDERS: ATTEND Family Medicine | DX: I80.209 Phlebitis and thrombophlebitis of unspecified deep vessels of unspecified lower extremity (principal) | CPT/HCPCS: 85610 ==

== ENCOUNTER 2018-01-08 08:00 | Outpatient (CLI) | payer MEDICARE, OTHER | END 2018-01-08 08:01 | disposition home or self-care (01) | LOC: LAB.N 08:00 | PROVIDERS: ATTEND Family Medicine | DX: I80.209 Phlebitis and thrombophlebitis of unspecified deep vessels of unspecified lower extremity (principal) | CPT/HCPCS: 85610 ==

== ENCOUNTER 2018-02-05 11:34 | Outpatient (CLI) | payer MEDICARE, OTHER | END 2018-02-05 11:35 | disposition home or self-care (01) | LOC: LAB.N 11:34 | PROVIDERS: ATTEND Family Medicine | DX: I80.209 Phlebitis and thrombophlebitis of unspecified deep vessels of unspecified lower extremity (principal) | CPT/HCPCS: 85610 ==

== ENCOUNTER 2018-02-08 08:00 | Outpatient (CLI) | payer MEDICARE, OTHER | END 2018-02-08 08:01 | disposition home or self-care (01) | LOC: LAB.N 08:00 | PROVIDERS: ATTEND Family Medicine | DX: I80.209 Phlebitis and thrombophlebitis of unspecified deep vessels of unspecified lower extremity (principal) | CPT/HCPCS: 85610 ==

== ENCOUNTER 2018-02-11 10:02 | Outpatient (CLI) | payer MEDICARE, OTHER | END 2018-02-11 10:03 | LOC: LAB.N 10:02 | PROVIDERS: ATTEND Family Medicine | DX: I80.209 Phlebitis and thrombophlebitis of unspecified deep vessels of unspecified lower extremity (principal) | CPT/HCPCS: 85610 ==

== ENCOUNTER 2018-02-15 09:18 | Outpatient (CLI) | payer MEDICARE, OTHER | END 2018-02-15 09:19 | disposition home or self-care (01) | LOC: LAB.N 09:18 | PROVIDERS: ATTEND Family Medicine | DX: I80.209 Phlebitis and thrombophlebitis of unspecified deep vessels of unspecified lower extremity (principal) | CPT/HCPCS: 85610 ==

== ENCOUNTER 2018-02-18 08:00 | Outpatient (CLI) | payer MEDICARE, OTHER | END 2018-02-18 08:01 | disposition home or self-care (01) | LOC: LAB.N 08:00 | PROVIDERS: ATTEND Family Medicine | DX: I80.209 Phlebitis and thrombophlebitis of unspecified deep vessels of unspecified lower extremity (principal) | CPT/HCPCS: 85610 ==

== ENCOUNTER 2018-02-22 09:31 | Outpatient (CLI) | payer MEDICARE, OTHER | END 2018-02-23 09:32 | disposition home or self-care (01) | LOC: LAB.N 09:31 | PROVIDERS: ATTEND Family Medicine | DX: I80.209 Phlebitis and thrombophlebitis of unspecified deep vessels of unspecified lower extremity (principal) | CPT/HCPCS: 85610 ==

== ENCOUNTER 2018-02-26 08:00 | Outpatient (CLI) | payer MEDICARE, OTHER | END 2018-02-26 08:01 | disposition home or self-care (01) | LOC: LAB.N 08:00 | PROVIDERS: ATTEND Family Medicine | DX: I80.209 Phlebitis and thrombophlebitis of unspecified deep vessels of unspecified lower extremity (principal) | CPT/HCPCS: 85610 ==

== ENCOUNTER 2018-03-05 08:00 | Outpatient (CLI) | payer MEDICARE, OTHER | END 2018-03-05 08:01 | disposition home or self-care (01) | LOC: LAB.N 08:00 | PROVIDERS: ATTEND Family Medicine | DX: I80.209 Phlebitis and thrombophlebitis of unspecified deep vessels of unspecified lower extremity (principal) | CPT/HCPCS: 85610 ==

== ENCOUNTER 2018-03-11 08:00 | Outpatient (CLI) | payer MEDICARE, OTHER | END 2018-03-11 08:01 | disposition home or self-care (01) | LOC: LAB.WCP 08:00 | PROVIDERS: ATTEND Family Medicine | DX: I80.209 Phlebitis and thrombophlebitis of unspecified deep vessels of unspecified lower extremity (principal) | CPT/HCPCS: 85610 ==

== ENCOUNTER 2018-03-18 08:00 | Outpatient (CLI) | payer MEDICARE, OTHER | END 2018-03-18 08:01 | disposition home or self-care (01) | LOC: LAB.N 08:00 | PROVIDERS: ATTEND Family Medicine | DX: I80.209 Phlebitis and thrombophlebitis of unspecified deep vessels of unspecified lower extremity (principal) | CPT/HCPCS: 85610 ==

== ENCOUNTER 2018-03-25 08:00 | Outpatient (CLI) | payer MEDICARE, OTHER | END 2018-03-25 08:01 | disposition home or self-care (01) | LOC: LAB.N 08:00 | PROVIDERS: ATTEND Family Medicine | DX: I80.209 Phlebitis and thrombophlebitis of unspecified deep vessels of unspecified lower extremity (principal) | CPT/HCPCS: 85610 ==

== ENCOUNTER 2018-04-09 09:34 | Outpatient (CLI) | payer MEDICARE, OTHER | END 2018-04-09 09:35 | disposition home or self-care (01) | LOC: LAB.N 09:34 | PROVIDERS: ATTEND Family Medicine | DX: I80.209 Phlebitis and thrombophlebitis of unspecified deep vessels of unspecified lower extremity (principal) | CPT/HCPCS: 85610 ==

== ENCOUNTER 2018-04-10 08:00 | Outpatient (CLI) | payer MEDICARE, OTHER ==
[2018-04-10 13:46] LABS: BASOPHILS # (AUTO) 0.1 10^3/uL (0.0-0.1); BASOPHILS % (AUTO) 0.7 %; EOSINOPHILS # (AUTO) 0.2 10^3/uL (0.0-0.7); EOSINOPHILS % (AUTO) 1.7 %; HGB - HEMOGLOBIN 16.9 g/dL (14.0-18.0); LYMPHOCYTES # (AUTO) 2.8 10^3/uL (1.5-3.5); LYMPHOCYTES % (AUTO) 31.3 %; MEAN CORPUSCULAR HEMOGLOBIN 32.1 pg (27.0-31.0); MEAN CORPUSCULAR VOLUME 94.3 fL (80.0-94.0); MEAN PLATELET VOLUME 9.4 fL (7.4-11.4); MONOCYTES # (AUTO) 0.7 10^3/uL (0.0-1.0); NEUTROPHILS # (AUTO) 5.2 10^3/uL (1.5-6.6); NEUTROPHILS % (AUTO) 58.3 %; PLT - PLATELET COUNT 197 10^3/uL (130-450); RED BLOOD COUNT 5.28 10^6/uL (4.70-6.10); RED CELL DISTRIBUTION WIDTH 13.7 % (12.0-15.0); WHITE BLOOD COUNT 8.9 x10^3/uL (4.8-10.8)
[2018-04-10 13:55] LABS: HB2 TOTAL 18.8 g/dL; HEMOGLOBIN A1C 0.77 g/dL; HEMOGLOBIN A1C % 5.9 % (4.6-6.2)
[2018-04-10 14:01] LABS: ALBUMIN 3.7 g/dL (3.2-5.5); ALBUMIN/GLOBULIN RATIO 1.1 (1.0-2.2); ALKALINE PHOSPHATASE 69 IU/L (42-121); ALT ALANINE AMINOTRANSFERASE 20 IU/L (10-60); AST ASPARTATE AMINOTRANSFERASE 19 IU/L (10-42); BILIRUBIN,TOTAL 0.5 mg/dL (0.2-1.0); BUN - BLOOD UREA NITROGEN 13 mg/dL (6-20); CALCIUM 8.8 mg/dL (8.5-10.3); CARBON DIOXIDE - CO2 28 mmol/L (21-32); CHLORIDE 104 mmol/L (101-111); CHOLESTEROL 144 mg/dL; CREATININE 0.7 mg/dL (0.6-1.2); GFR - MDRD 110 (>89); GLUCOSE 102 mg/dL (70-100); HDL CHOLESTEROL 29 mg/dL; LDL CHOLESTEROL,CALCULATED 89 mg/dL; LDL/HDL RATIO 3.1 (<3.6); SODIUM 138 mmol/L (135-145); TOTAL PROTEIN 7.1 g/dL (6.7-8.2); VLDL CHOLESTEROL 26 mg/dL
== END 2018-04-10 08:01 | disposition home or self-care (01) ==
LOC: LAB.N 08:00
PROVIDERS: ATTEND Family Medicine
DX: E11.9 Type 2 diabetes mellitus without complications (principal)
CPT/HCPCS: 36415; 80053; 80061; 83036; 83721; 85025

== ENCOUNTER 2018-04-15 08:00 | Outpatient (CLI) | payer MEDICARE, OTHER | END 2018-04-15 08:01 | disposition home or self-care (01) | LOC: LAB.N 08:00 | PROVIDERS: ATTEND Family Medicine | DX: I80.209 Phlebitis and thrombophlebitis of unspecified deep vessels of unspecified lower extremity (principal) | CPT/HCPCS: 85610 ==

== ENCOUNTER 2018-04-22 09:20 | Outpatient (CLI) | payer MEDICARE, OTHER | END 2018-04-22 09:21 | disposition home or self-care (01) | LOC: LAB.N 09:20 | PROVIDERS: ATTEND Family Medicine | DX: I80.209 Phlebitis and thrombophlebitis of unspecified deep vessels of unspecified lower extremity (principal) | CPT/HCPCS: 85610 ==

== ENCOUNTER 2018-04-26 08:07 | Outpatient (CLI) | payer MEDICARE, OTHER | END 2018-04-26 08:08 | disposition home or self-care (01) | LOC: LAB.N 08:07 | PROVIDERS: ATTEND Family Medicine | DX: I80.209 Phlebitis and thrombophlebitis of unspecified deep vessels of unspecified lower extremity (principal) | CPT/HCPCS: 85610 ==

== ENCOUNTER 2018-05-02 11:24 | Outpatient (CLI) | payer MEDICARE, OTHER | END 2018-05-02 11:25 | disposition home or self-care (01) | LOC: LAB.N 11:24 | PROVIDERS: ATTEND Family Medicine | DX: I80.209 Phlebitis and thrombophlebitis of unspecified deep vessels of unspecified lower extremity (principal) | CPT/HCPCS: 85610 ==

== ENCOUNTER 2018-05-09 08:58 | Outpatient (CLI) | payer MEDICARE, OTHER | END 2018-05-09 08:59 | disposition home or self-care (01) | LOC: LAB.N 08:58 | PROVIDERS: ATTEND Family Medicine | DX: I80.209 Phlebitis and thrombophlebitis of unspecified deep vessels of unspecified lower extremity (principal) | CPT/HCPCS: 85610 ==

== ENCOUNTER 2018-05-13 08:00 | Outpatient (CLI) | payer MEDICARE, OTHER | END 2018-05-13 08:01 | disposition home or self-care (01) | LOC: LAB.N 08:00 | PROVIDERS: ATTEND Family Medicine | DX: I80.209 Phlebitis and thrombophlebitis of unspecified deep vessels of unspecified lower extremity (principal) | CPT/HCPCS: 85610 ==

== ENCOUNTER 2018-05-21 08:00 | Outpatient (CLI) | payer MEDICARE, OTHER | END 2018-05-21 08:01 | disposition home or self-care (01) | LOC: LAB.N 08:00 | PROVIDERS: ATTEND Family Medicine | DX: I80.209 Phlebitis and thrombophlebitis of unspecified deep vessels of unspecified lower extremity (principal) | CPT/HCPCS: 85610 ==

== ENCOUNTER 2018-05-27 10:15 | Outpatient (CLI) | payer MEDICARE, OTHER | END 2018-05-27 10:16 | disposition home or self-care (01) | LOC: LAB.N 10:15 | PROVIDERS: ATTEND Family Medicine | DX: I80.209 Phlebitis and thrombophlebitis of unspecified deep vessels of unspecified lower extremity (principal) | CPT/HCPCS: 85610 ==

== ENCOUNTER 2018-06-03 10:37 | Outpatient (CLI) | payer MEDICARE, OTHER | END 2018-06-03 10:38 | disposition home or self-care (01) | LOC: LAB.N 10:37 | PROVIDERS: ATTEND Family Medicine | DX: I80.209 Phlebitis and thrombophlebitis of unspecified deep vessels of unspecified lower extremity (principal) | CPT/HCPCS: 85610 ==

== ENCOUNTER 2018-06-07 09:45 | Outpatient (CLI) | payer MEDICARE, OTHER | END 2018-06-07 09:46 | disposition home or self-care (01) | LOC: LAB.N 09:45 | PROVIDERS: ATTEND Family Medicine | DX: I80.209 Phlebitis and thrombophlebitis of unspecified deep vessels of unspecified lower extremity (principal) | CPT/HCPCS: 85610 ==

== ENCOUNTER 2018-06-14 08:55 | Outpatient (CLI) | payer MEDICARE, OTHER ==
[2018-06-14 12:21] LABS: INR 1.5 (0.8-1.2); PT - PROTHROMBIN TIME 16.6 secs (9.9-12.6)
== END 2018-06-14 08:56 | disposition home or self-care (01) ==
LOC: LAB.N 08:55
PROVIDERS: ATTEND Family Medicine
DX: I80.209 Phlebitis and thrombophlebitis of unspecified deep vessels of unspecified lower extremity (principal); E11.9 Type 2 diabetes mellitus without complications
CPT/HCPCS: 36415; 85610

== ENCOUNTER 2018-06-24 11:34 | Outpatient (CLI) | payer MEDICARE, OTHER | END 2018-06-24 11:35 | disposition home or self-care (01) | LOC: LAB.N 11:34 | PROVIDERS: ATTEND Family Medicine | DX: I80.209 Phlebitis and thrombophlebitis of unspecified deep vessels of unspecified lower extremity (principal) | CPT/HCPCS: 85610 ==

== ENCOUNTER 2018-07-01 08:00 | Outpatient (CLI) | payer MEDICARE, OTHER ==
[2018-07-01 18:53] LABS: BASOPHILS # (AUTO) 0.1 10^3/uL (0.0-0.1); BASOPHILS % (AUTO) 0.5 %; EOSINOPHILS # (AUTO) 0.1 10^3/uL (0.0-0.7); EOSINOPHILS % (AUTO) 1.2 %; HGB - HEMOGLOBIN 17.9 g/dL (14.0-18.0); LYMPHOCYTES # (AUTO) 2.9 10^3/uL (1.5-3.5); LYMPHOCYTES % (AUTO) 27.5 %; MEAN CORPUSCULAR HEMOGLOBIN 32.4 pg (27.0-31.0); MEAN CORPUSCULAR HGB CONC 34.4 g/dL (32.0-36.0); MEAN CORPUSCULAR VOLUME 94.3 fL (80.0-94.0); MEAN PLATELET VOLUME 9.5 fL (7.4-11.4); MONOCYTES # (AUTO) 0.7 10^3/uL (0.0-1.0); NEUTROPHILS # (AUTO) 6.7 10^3/uL (1.5-6.6); NEUTROPHILS % (AUTO) 63.8 %; PLT - PLATELET COUNT 191 10^3/uL (130-450); RED BLOOD COUNT 5.54 10^6/uL (4.70-6.10); RED CELL DISTRIBUTION WIDTH 13.9 % (12.0-15.0); WHITE BLOOD COUNT 10.6 x10^3/uL (4.8-10.8)
[2018-07-01 19:18] LABS: ALBUMIN 4.1 g/dL (3.2-5.5); ALBUMIN/GLOBULIN RATIO 1.2 (1.0-2.2); ALKALINE PHOSPHATASE 71 IU/L (42-121); ALT ALANINE AMINOTRANSFERASE 17 IU/L (10-60); AST ASPARTATE AMINOTRANSFERASE 16 IU/L (10-42); BILIRUBIN,TOTAL 0.7 mg/dL (0.2-1.0); BUN - BLOOD UREA NITROGEN 14 mg/dL (6-20); CALCIUM 8.9 mg/dL (8.5-10.3); CARBON DIOXIDE - CO2 27 mmol/L (21-32); CHLORIDE 105 mmol/L (101-111); CHOL/HDL RATIO 5.7 (<5.0); CHOLESTEROL 177 mg/dL; CREATININE 0.7 mg/dL (0.6-1.2); GFR - MDRD 110 (>89); GLUCOSE 96 mg/dL (70-100); HDL CHOLESTEROL 31 mg/dL; LDL CHOLESTEROL,CALCULATED 111 mg/dL; LDL/HDL RATIO 3.6 (<3.6); SODIUM 138 mmol/L (135-145); TOTAL PROTEIN 7.4 g/dL (6.7-8.2); VLDL CHOLESTEROL 35 mg/dL
== END 2018-07-01 08:01 | disposition home or self-care (01) ==
LOC: LAB.N 08:00
PROVIDERS: ATTEND Family Medicine
DX: I80.209 Phlebitis and thrombophlebitis of unspecified deep vessels of unspecified lower extremity (principal); E11.9 Type 2 diabetes mellitus without complications; I73.9 Peripheral vascular disease, unspecified; I10 Essential (primary) hypertension
CPT/HCPCS: 36415; 80053; 80061; 83721; 85025; 85610

== ENCOUNTER 2018-07-05 08:00 | Outpatient (CLI) | payer MEDICARE, OTHER | END 2018-07-05 23:59 | disposition home or self-care (01) | LOC: LAB.N 08:00 | PROVIDERS: ATTEND Family Medicine | DX: I80.209 Phlebitis and thrombophlebitis of unspecified deep vessels of unspecified lower extremity (principal) | CPT/HCPCS: 85610 ==

== ENCOUNTER 2018-07-12 08:00 | Outpatient (CLI) | payer MEDICARE, OTHER | END 2018-07-12 23:59 | LOC: LAB.N 08:00 | PROVIDERS: ATTEND Family Medicine | DX: I80.209 Phlebitis and thrombophlebitis of unspecified deep vessels of unspecified lower extremity (principal) | CPT/HCPCS: 85610 ==

== ENCOUNTER 2018-08-13 08:00 | Outpatient (CLI) | payer MEDICARE, OTHER ==
[2018-08-13 18:57] LABS: BASOPHILS % (AUTO) 0.4 %; EOSINOPHILS # (AUTO) 0.1 10^3/uL (0.0-0.7); EOSINOPHILS % (AUTO) 1.3 %; HGB - HEMOGLOBIN 17.9 g/dL (14.0-18.0); LYMPHOCYTES # (AUTO) 2.6 10^3/uL (1.5-3.5); LYMPHOCYTES % (AUTO) 27.7 %; MEAN CORPUSCULAR HEMOGLOBIN 31.6 pg (27.0-31.0); MEAN CORPUSCULAR HGB CONC 33.1 g/dL (32.0-36.0); MEAN CORPUSCULAR VOLUME 95.6 fL (80.0-94.0); MEAN PLATELET VOLUME 8.8 fL (7.4-11.4); MONOCYTES # (AUTO) 0.6 10^3/uL (0.0-1.0); MONOCYTES % (AUTO) 6.5 %; NEUTROPHILS # (AUTO) 5.9 10^3/uL (1.5-6.6); NEUTROPHILS % (AUTO) 64.1 %; PLT - PLATELET COUNT 197 10^3/uL (130-450); RED BLOOD COUNT 5.66 10^6/uL (4.70-6.10); RED CELL DISTRIBUTION WIDTH 14.3 % (12.0-15.0); WHITE BLOOD COUNT 9.2 x10^3/uL (4.8-10.8)
[2018-08-13 19:04] LABS: CALCIUM 8.7 mg/dL (8.5-10.3); CREATININE 0.6 mg/dL (0.6-1.2)
[2018-08-13 19:25] LABS: HEMOGLOBIN A1C 0.75 g/dL; HEMOGLOBIN A1C % 5.8 % (4.6-6.2)
== END 2018-08-13 23:59 | disposition home or self-care (01) ==
LOC: LAB.N 08:00
PROVIDERS: ATTEND Physician Assistant Medical
DX: E11.9 Type 2 diabetes mellitus without complications (principal); I73.9 Peripheral vascular disease, unspecified; Z76.89 Persons encountering health services in other specified circumstances; I72.4 Aneurysm of artery of lower extremity; I25.10 Atherosclerotic heart disease of native coronary artery without angina pectoris
CPT/HCPCS: 36415; 80048; 83036; 85025; 85610

== ENCOUNTER 2018-10-08 08:00 | Outpatient (CLI) | payer MEDICARE, OTHER | END 2018-10-08 23:59 | disposition home or self-care (01) | LOC: LAB.N 08:00 | PROVIDERS: ATTEND Physician Assistant Medical | DX: Z79.01 Long term (current) use of anticoagulants (principal) | CPT/HCPCS: 85610 ==

== ENCOUNTER 2018-10-22 08:00 | Outpatient (CLI) | payer MEDICARE, OTHER | END 2018-10-22 23:59 | disposition home or self-care (01) | LOC: LAB.N 08:00 | PROVIDERS: ATTEND Physician Assistant Medical | DX: Z76.89 Persons encountering health services in other specified circumstances (principal); Z79.01 Long term (current) use of anticoagulants | CPT/HCPCS: 85610 ==

== ENCOUNTER 2018-11-18 08:00 | Outpatient (CLI) | payer MEDICARE, OTHER | END 2018-11-18 23:59 | disposition home or self-care (01) | LOC: LAB.N 08:00 | PROVIDERS: ATTEND Physician Assistant Medical | DX: Z79.01 Long term (current) use of anticoagulants (principal) | CPT/HCPCS: 85610 ==

== ENCOUNTER 2018-12-18 09:59 | Outpatient (CLI) | payer MEDICARE, OTHER | END 2018-12-18 23:59 | disposition home or self-care (01) | LOC: LAB.N 09:59 | PROVIDERS: ATTEND Physician Assistant Medical | DX: Z79.01 Long term (current) use of anticoagulants (principal) | CPT/HCPCS: 85610 ==

== ENCOUNTER 2018-12-27 08:00 | Outpatient (CLI) | payer MEDICARE, OTHER | END 2018-12-27 23:59 | disposition home or self-care (01) | LOC: LAB.N 08:00 | PROVIDERS: ATTEND Physician Assistant Medical | DX: Z51.81 Encounter for therapeutic drug level monitoring (principal); Z79.01 Long term (current) use of anticoagulants | CPT/HCPCS: 85610 ==

== ENCOUNTER 2019-01-03 08:00 | Outpatient (CLI) | payer MEDICARE, OTHER | END 2019-01-03 23:59 | disposition home or self-care (01) | LOC: LAB.N 08:00 | PROVIDERS: ATTEND Physician Assistant Medical | DX: Z79.01 Long term (current) use of anticoagulants (principal) | CPT/HCPCS: 85610 ==

== ENCOUNTER 2019-01-17 08:00 | Outpatient (CLI) | payer MEDICARE, OTHER | END 2019-01-17 23:59 | disposition home or self-care (01) | LOC: LAB.N 08:00 | PROVIDERS: ATTEND Physician Assistant Medical | DX: Z51.81 Encounter for therapeutic drug level monitoring (principal); Z79.01 Long term (current) use of anticoagulants | CPT/HCPCS: 85610 ==

== ENCOUNTER 2019-01-23 08:00 | Outpatient (CLI) | payer MEDICARE, OTHER | END 2019-01-23 23:59 | disposition home or self-care (01) | LOC: LAB.N 08:00 | PROVIDERS: ATTEND Physician Assistant Medical | DX: Z51.81 Encounter for therapeutic drug level monitoring (principal); Z79.01 Long term (current) use of anticoagulants | CPT/HCPCS: 85610 ==

== ENCOUNTER 2019-01-30 11:47 | Outpatient (CLI) | payer MEDICARE, OTHER | END 2019-01-30 23:59 | disposition home or self-care (01) | LOC: LAB.N 11:47 | PROVIDERS: ATTEND Physician Assistant Medical | DX: Z79.01 Long term (current) use of anticoagulants (principal) | CPT/HCPCS: 85610 ==

== ENCOUNTER 2019-02-07 11:00 | Outpatient (CLI) | payer MEDICARE, OTHER | END 2019-02-07 23:59 | disposition home or self-care (01) | LOC: LAB.N 11:00 | PROVIDERS: ATTEND Physician Assistant Medical | DX: Z79.01 Long term (current) use of anticoagulants (principal) | CPT/HCPCS: 85610 ==

== ENCOUNTER 2019-02-17 08:00 | Outpatient (CLI) | payer MEDICARE, OTHER | END 2019-02-17 23:59 | disposition home or self-care (01) | LOC: LAB.N 08:00 | PROVIDERS: ATTEND Physician Assistant Medical | DX: Z79.01 Long term (current) use of anticoagulants (principal) | CPT/HCPCS: 85610 ==

== ENCOUNTER 2019-03-03 08:00 | Outpatient (CLI) | payer MEDICARE, OTHER | END 2019-03-03 08:01 | disposition home or self-care (01) | LOC: LAB.N 08:00 | PROVIDERS: ATTEND Physician Assistant Medical | DX: Z79.01 Long term (current) use of anticoagulants (principal) | CPT/HCPCS: 85610 ==

== ENCOUNTER 2019-03-17 09:47 | Outpatient (CLI) | payer MEDICARE, OTHER | END 2019-03-17 23:59 | disposition home or self-care (01) | LOC: LAB.N 09:47 | PROVIDERS: ATTEND Physician Assistant Medical | DX: Z79.01 Long term (current) use of anticoagulants (principal) | CPT/HCPCS: 85610 ==

== ENCOUNTER 2019-04-14 08:00 | Outpatient (CLI) | payer MEDICARE, OTHER | END 2019-04-14 23:59 | disposition home or self-care (01) | LOC: LAB.N 08:00 | PROVIDERS: ATTEND Physician Assistant Medical | DX: Z79.01 Long term (current) use of anticoagulants (principal) | CPT/HCPCS: 85610 ==

== ENCOUNTER 2019-05-12 10:45 | Outpatient (CLI) | payer MEDICARE, OTHER | END 2019-05-12 23:59 | disposition home or self-care (01) | LOC: LAB.N 10:45 | PROVIDERS: ATTEND Physician Assistant Medical | DX: Z79.01 Long term (current) use of anticoagulants (principal) | CPT/HCPCS: 85610 ==

== ENCOUNTER 2019-06-09 08:00 | Outpatient (CLI) | payer MEDICARE, OTHER | END 2019-06-09 23:59 | LOC: LAB.N 08:00 | PROVIDERS: ATTEND Physician Assistant Medical | DX: Z79.01 Long term (current) use of anticoagulants (principal) | CPT/HCPCS: 85610 ==

== ENCOUNTER 2019-06-24 11:06 | Outpatient (CLI) | payer MEDICARE, OTHER | END 2019-06-24 23:59 | disposition home or self-care (01) | LOC: LAB.N 11:06 | PROVIDERS: ATTEND Physician Assistant Medical | DX: Z79.01 Long term (current) use of anticoagulants (principal) | CPT/HCPCS: 85610 ==

== ENCOUNTER 2019-07-01 10:50 | Outpatient (CLI) | payer MEDICARE, OTHER | END 2019-07-01 23:59 | disposition home or self-care (01) | LOC: LAB.N 10:50 | PROVIDERS: ATTEND Physician Assistant Medical | DX: Z79.01 Long term (current) use of anticoagulants (principal) | CPT/HCPCS: 85610 ==

== ENCOUNTER 2019-07-08 11:17 | Outpatient (CLI) | payer MEDICARE, OTHER | END 2019-07-08 23:59 | disposition home or self-care (01) | LOC: LAB.N 11:17 | PROVIDERS: ATTEND Physician Assistant Medical | DX: Z79.01 Long term (current) use of anticoagulants (principal) | CPT/HCPCS: 85610 ==

== ENCOUNTER 2019-07-21 11:07 | Outpatient (CLI) | payer MEDICARE, OTHER ==
[2019-07-21 18:48] LABS: CHOL/HDL RATIO 5.2 (<5.0); CHOLESTEROL 151 mg/dL; HDL CHOLESTEROL 29 mg/dL; LDL CHOLESTEROL,CALCULATED 96 mg/dL; LDL/HDL RATIO 3.3 (<3.6); VLDL CHOLESTEROL 26 mg/dL
== END 2019-07-21 23:59 | disposition home or self-care (01) ==
LOC: LAB.N 11:07
PROVIDERS: ATTEND Physician Assistant Medical
DX: E11.9 Type 2 diabetes mellitus without complications (principal); I10 Essential (primary) hypertension; I25.10 Atherosclerotic heart disease of native coronary artery without angina pectoris; Z79.01 Long term (current) use of anticoagulants
CPT/HCPCS: 36415; 80061; 83721; 85610

== ENCOUNTER 2019-08-12 08:00 | Outpatient (CLI) | payer MEDICARE, OTHER | END 2019-08-12 23:59 | disposition home or self-care (01) | LOC: LAB.N 08:00 | PROVIDERS: ATTEND Physician Assistant Medical | DX: Z79.01 Long term (current) use of anticoagulants (principal) | CPT/HCPCS: 85610 ==

== ENCOUNTER 2019-09-09 12:24 | Outpatient (CLI) | payer MEDICARE, OTHER | END 2019-09-09 23:59 | disposition home or self-care (01) | LOC: LAB.N 12:24 | PROVIDERS: ATTEND Physician Assistant Medical | DX: Z79.01 Long term (current) use of anticoagulants (principal) | CPT/HCPCS: 85610 ==

== ENCOUNTER 2019-10-08 10:25 | Outpatient (CLI) | payer MEDICARE, OTHER | END 2019-10-08 23:59 | disposition home or self-care (01) | LOC: LAB.N 10:25 | PROVIDERS: ATTEND Physician Assistant Medical | DX: Z79.01 Long term (current) use of anticoagulants (principal) | CPT/HCPCS: 85610 ==

== ENCOUNTER 2019-10-20 10:37 | Outpatient (CLI) | payer MEDICARE, OTHER | END 2019-10-20 23:59 | disposition home or self-care (01) | LOC: LAB.N 10:37 | PROVIDERS: ATTEND Physician Assistant Medical | DX: Z79.01 Long term (current) use of anticoagulants (principal) | CPT/HCPCS: 85610 ==

== ENCOUNTER 2019-10-31 08:00 | Outpatient (CLI) | payer MEDICARE, OTHER | END 2019-10-31 23:59 | disposition home or self-care (01) | LOC: LAB.N 08:00 | PROVIDERS: ATTEND Physician Assistant Medical | DX: Z79.01 Long term (current) use of anticoagulants (principal) | CPT/HCPCS: 85610 ==

== ENCOUNTER 2019-11-14 11:15 | Outpatient (CLI) | payer MEDICARE, OTHER ==
[2019-11-14 13:00] LABS: BASOPHILS % (AUTO) 0.3 %; EOSINOPHILS # (AUTO) 0.1 10^3/uL (0.0-0.7); EOSINOPHILS % (AUTO) 1.2 %; HGB - HEMOGLOBIN 17.7 g/dL (14.0-18.0); LYMPHOCYTES # (AUTO) 2.7 10^3/uL (1.5-3.5); LYMPHOCYTES % (AUTO) 30.9 %; MEAN CORPUSCULAR HEMOGLOBIN 32.3 pg (27.0-31.0); MEAN CORPUSCULAR HGB CONC 33.3 g/dL (32.0-36.0); MEAN CORPUSCULAR VOLUME 96.9 fL (80.0-94.0); MEAN PLATELET VOLUME 10.4 fL (7.4-11.4); MONOCYTES # (AUTO) 0.6 10^3/uL (0.0-1.0); NEUTROPHILS # (AUTO) 5.2 10^3/uL (1.5-6.6); NEUTROPHILS % (AUTO) 60.3 %; PLT - PLATELET COUNT 180 10^3/uL (130-450); RED BLOOD COUNT 5.48 10^6/uL (4.70-6.10); RED CELL DISTRIBUTION WIDTH 13.4 % (12.0-15.0); WHITE BLOOD COUNT 8.6 x10^3/uL (4.8-10.8)
[2019-11-14 13:12] LABS: ALBUMIN 4.1 g/dL (3.2-5.5); ALBUMIN/GLOBULIN RATIO 1.3 (1.0-2.2); BILIRUBIN,TOTAL 0.5 mg/dL (0.2-1.0); CREATININE 0.8 mg/dL (0.6-1.2); TOTAL PROTEIN 7.2 g/dL (6.7-8.2)
[2019-11-14 13:18] LABS: CREATININE,URINE 103.7 mg/dL; MICROALBUM/CREATININE RATIO,UR 5.8 ug/mg (<30.0); MICROALBUMIN,URINE 0.6 mg/dL (0-300.0)
[2019-11-14 13:20] LABS: HB2 TOTAL 18.3 g/dL; HEMOGLOBIN A1C 0.66 g/dL; HEMOGLOBIN A1C % 5.5 % (4.6-6.2)
== END 2019-11-14 23:59 | disposition home or self-care (01) ==
LOC: LAB.WCP 11:15
PROVIDERS: ATTEND Physician Assistant Medical
DX: E11.9 Type 2 diabetes mellitus without complications (principal); I10 Essential (primary) hypertension
CPT/HCPCS: 36415; 80053; 82043; 82570; 83036; 84443; 85025

== ENCOUNTER 2019-12-12 08:00 | Outpatient (CLI) | payer MEDICARE, OTHER | END 2019-12-12 23:59 | disposition home or self-care (01) | LOC: LAB.N 08:00 | PROVIDERS: ATTEND Family Medicine | DX: I82.409 Acute embolism and thrombosis of unspecified deep veins of unspecified lower extremity (principal); Z79.01 Long term (current) use of anticoagulants ==

== ENCOUNTER 2020-01-09 08:00 | Outpatient (CLI) | payer MEDICARE, OTHER | END 2020-01-09 23:59 | disposition home or self-care (01) | LOC: LAB.WCP 08:00 | PROVIDERS: ATTEND Family Medicine | DX: I82.409 Acute embolism and thrombosis of unspecified deep veins of unspecified lower extremity (principal); Z79.01 Long term (current) use of anticoagulants ==

== ENCOUNTER 2020-02-05 08:00 | Outpatient (CLI) | payer MEDICARE, OTHER | END 2020-02-05 23:59 | disposition home or self-care (01) | LOC: LAB.WCP 08:00 | PROVIDERS: ATTEND Physician Assistant Medical | DX: I82.409 Acute embolism and thrombosis of unspecified deep veins of unspecified lower extremity (principal); Z79.01 Long term (current) use of anticoagulants ==

== ENCOUNTER 2020-02-16 09:02 | Outpatient (CLI) | payer MEDICARE, OTHER ==
[2020-02-16 11:54] LABS: BASOPHILS # (AUTO) 0.1 10^3/uL (0.0-0.1); BASOPHILS % (AUTO) 0.5 %; EOSINOPHILS # (AUTO) 0.1 10^3/uL (0.0-0.7); EOSINOPHILS % (AUTO) 1.3 %; HGB - HEMOGLOBIN 17.9 g/dL (14.0-18.0); LYMPHOCYTES % (AUTO) 29.9 %; MEAN CORPUSCULAR HEMOGLOBIN 31.9 pg (27.0-31.0); MEAN CORPUSCULAR HGB CONC 32.7 g/dL (32.0-36.0); MEAN CORPUSCULAR VOLUME 97.5 fL (80.0-94.0); MEAN PLATELET VOLUME 10.6 fL (7.4-11.4); MONOCYTES # (AUTO) 0.8 10^3/uL (0.0-1.0); MONOCYTES % (AUTO) 7.8 %; NEUTROPHILS # (AUTO) 5.9 10^3/uL (1.5-6.6); NEUTROPHILS % (AUTO) 60.1 %; PLT - PLATELET COUNT 170 10^3/uL (130-450); RED BLOOD COUNT 5.62 10^6/uL (4.70-6.10); RED CELL DISTRIBUTION WIDTH 13.3 % (12.0-15.0); WHITE BLOOD COUNT 9.9 x10^3/uL (4.8-10.8)
[2020-02-16 13:05] LABS: ALBUMIN 4.7 g/dL (3.2-5.5); ALBUMIN/GLOBULIN RATIO 1.9 (1.0-2.2); ALKALINE PHOSPHATASE 57 IU/L (42-121); ALT ALANINE AMINOTRANSFERASE 17 IU/L (10-60); AST ASPARTATE AMINOTRANSFERASE 16 IU/L (10-42); BILIRUBIN,TOTAL 0.8 mg/dL (0.2-1.0); BUN - BLOOD UREA NITROGEN 18 mg/dL (6-20); CALCIUM 9.2 mg/dL (8.5-10.3); CARBON DIOXIDE - CO2 30 mmol/L (21-32); CHLORIDE 105 mmol/L (101-111); CHOL/HDL RATIO 4.2 (<5.0); CHOLESTEROL 166 mg/dL; CREATININE 0.9 mg/dL (0.6-1.2); GLUCOSE 101 mg/dL (70-100); HDL CHOLESTEROL 40 mg/dL; LDL CHOLESTEROL,CALCULATED 103 mg/dL; LDL/HDL RATIO 2.6 (<3.6); SODIUM 141 mmol/L (135-145); TOTAL PROTEIN 7.2 g/dL (6.7-8.2); VLDL CHOLESTEROL 23 mg/dL
[2020-02-16 13:18] LABS: HB2 TOTAL 18.8 g/dL; HEMOGLOBIN A1C 0.72 g/dL; HEMOGLOBIN A1C % 5.7 % (4.6-6.2)
[2020-02-16 13:52] LABS: CREATININE,URINE 97.9 mg/dL; MICROALBUM/CREATININE RATIO,UR 23.5 ug/mg (<30.0); MICROALBUMIN,URINE 2.3 mg/dL (0-300.0)
== END 2020-02-16 23:59 | disposition home or self-care (01) ==
LOC: LAB.WCP 09:02
PROVIDERS: ATTEND Family Medicine
DX: E11.9 Type 2 diabetes mellitus without complications (principal)
CPT/HCPCS: 36415; 80053; 80061; 82043; 82570; 83036; 83721; 85025

== ENCOUNTER 2020-02-16 11:08 | Outpatient (CLI) | payer MEDICARE, OTHER ==
--- NOTE | 2020-02-16 16:27 | CT Report ---
PROCEDURE: Low Dose Lung Cancer Screen INDICATIONS: 64 YEAR SMOKER TECHNIQUE: Noncontrast low-dose 5 mm thick sections acquired from the pulmonary apices to the posterior costophr enic angles. 7 mm thick coronal and sagittal MIP reformats were then acquired. For radiation dose r eduction, the following was used: automated exposure control, adjustment of mA and/or kV according t o patient size. COMPARISON: No prior comparison chest CT available for review.. FINDINGS: Image quality: Excellent. Lungs and pleura: There is moderately severe to severe centrilobular emphysema and interstitial prom inence in this patient with presumed chronic smoking history. Throughout the lung parenchyma, however , there is no identified focus of mass lesion that would suggest early detection of lung carcinoma. Mediastinum: Heart size is normal. No pericardial effusion. No mediastinal adenopathy by size crit eria. Thoracic aorta and central pulmonary arteries are normal in size except at the mid abdominal a yoni near the mid kidney level where maximal aortic diameter is 3.5 cm. The extent of the aortic aneu rysm partially visualized is indeterminate from this examination.. Esophagus is normal in caliber. No hiatal hernia. Bones and chest wall: No suspicious bony lesions. No vertebral body compression fractures. No axil luis or supraclavicular adenopathy by size criteria. The thyroid is normal in size. Abdomen: Visualized upper abdomen solid organs and bowel loops appear normal in the absence of contr ast. IMPRESSION: Moderately severe to severe centrilobular emphysema and interstitial prominence related to long-stand ing smoking history. No early manifestation of underlying lung carcinoma is identified. Note is made of a 3.5 cm partially visualized mid abdominal aortic aneurysm which could be further assessed to est ablish baseline for follow-up with ultrasound scanning in the near term. The maximal diameter and cr aniocaudad length is not yet established. Lung RADS category 1, follow-up noncontrast low-dose screening CT is recommended in 1 year. Reviewed by: Alfredito Abernathy MD on 02/16/2020 4:25 PM PDT Approved by: Alfredito Abernathy MD on 02/16/2020 4:25 PM PDT Station ID: [id number]
== END 2020-02-16 11:09 | disposition home or self-care (01) ==
LOC: DI 11:08
PROVIDERS: ATTEND Family Medicine
DX: Z12.2 Encounter for screening for malignant neoplasm of respiratory organs (principal); F17.210 Nicotine dependence, cigarettes, uncomplicated; J43.2 Centrilobular emphysema; I71.4 Abdominal aortic aneurysm, without rupture; E11.9 Type 2 diabetes mellitus without complications
CPT/HCPCS: 36415; 80053; 80061; 82043; 82570; 83036; 85025; G0297; 83721

== ENCOUNTER 2020-03-10 08:00 | Outpatient (CLI) | payer MEDICARE, OTHER | END 2020-03-10 23:59 | disposition home or self-care (01) | LOC: LAB.WCP 08:00 | PROVIDERS: ATTEND Family Medicine | DX: I73.9 Peripheral vascular disease, unspecified (principal) ==

== ENCOUNTER 2020-03-17 10:08 | Outpatient (CLI) | payer MEDICARE, OTHER ==
--- NOTE | 2020-03-17 14:37 | CT Report ---
PROCEDURE: IAC'S WO INDICATIONS: SENSORINEURAL HEARING LOSS COMPARISON: None TECHNIQUE: Noncontrast 0.6 mm thick direct axial and coronal sections acquired through each temporal bone separa tely. For radiation dose reduction, the following was used: automated exposure control, adjustment of mA and/or kV according to patient size. FINDINGS: Image quality: Excellent. RIGHT: External auditory canal: Thin linear density noted in the osseous portion of the right external suzi tory canal. Middle ear: Right tympanic membrane is normal in appearance. Right middle ear is normally aerated. No air-fluid levels or soft tissue density mass is identified in the right middle ear. Right ear ossicl es are normal in appearance and are normally positioned. No osseous erosive changes identified. Inner ear: Inner ear is normally formed and appears unremarkable. Facial nerve appears normal throu ghout is course. Mastoids: Mastoid air cells are clear. LEFT: External auditory canal: Canal has a normal appearance. Middle ear: Left tympanic membrane is normal in appearance. Left middle ear is normally aerated. No a ir-fluid levels or soft tissue density mass is identified in the left middle ear. Left ear ossicles a re normal in appearance and are normally positioned. No osseous erosive changes identified. Inner ear: Inner ear is normally formed and appears unremarkable. Facial nerve appears normal throu ghout its course. Mastoids: Mastoid air cells are clear. MISCELLANEOUS: Visualized surrounding bones appear unremarkable. Visualized intracranial structures , including the cerebellopontine angle cisterns, appear normal. Atherosclerotic calcifications noted in the intracranial internal carotid arteries bilaterally. Internal carotid arteries follow a normal course. IMPRESSION: 1. Thin linear branching density noted in the osseous portion of the right external auditory canal wh ich may represent cerumen or small foreign body. Recommend correlation with direct visualization. 2. Otherwise, normal examination. Reviewed by: Kylie Almaraz MD, PhD on 03/17/2020 2:35 PM PDT Approved by: Kylie Almaraz MD, PhD on 03/17/2020 2:35 PM PDT Station ID: [id number]
== END 2020-03-17 10:09 | disposition home or self-care (01) ==
LOC: DI 10:08
PROVIDERS: ATTEND Otolaryngology
DX: R93.0 Abnormal findings on diagnostic imaging of skull and head, not elsewhere classified (principal)
CPT/HCPCS: 70480

== ENCOUNTER 2020-03-21 16:28 | Observation (INO) | payer MEDICARE, OTHER ==
[2020-03-21 17:00] LABS: BASOPHILS % (AUTO) 0.3 %; EOSINOPHILS # (AUTO) 0.2 10^3/uL (0.0-0.7); EOSINOPHILS % (AUTO) 1.8 %; HGB - HEMOGLOBIN 14.2 g/dL (14.0-18.0); LYMPHOCYTES # (AUTO) 2.6 10^3/uL (1.5-3.5); LYMPHOCYTES % (AUTO) 29.3 %; MEAN CORPUSCULAR HGB CONC 33.6 g/dL (32.0-36.0); MEAN PLATELET VOLUME 9.5 fL (7.4-11.4); MONOCYTES # (AUTO) 0.7 10^3/uL (0.0-1.0); MONOCYTES % (AUTO) 7.6 %; NEUTROPHILS # (AUTO) 5.3 10^3/uL (1.5-6.6); NEUTROPHILS % (AUTO) 60.7 %; PLT - PLATELET COUNT 178 10^3/uL (130-450); RED BLOOD COUNT 4.44 10^6/uL (4.70-6.10); WHITE BLOOD COUNT 8.7 x10^3/uL (4.8-10.8)
[2020-03-21 17:11] LABS: INR 1.4 (0.8-1.2); PT - PROTHROMBIN TIME 15.4 secs (9.9-12.6)
[2020-03-21] MEDS ORDERED: SODIUM CHLORIDE 0.9% 1,000 ML IV STA (17:16)
[2020-03-21 17:17] LABS: ALBUMIN 3.8 g/dL (3.2-5.5); ALBUMIN/GLOBULIN RATIO 1.5 (1.0-2.2); BILIRUBIN,TOTAL 0.5 mg/dL (0.2-1.0); CALCIUM 8.9 mg/dL (8.5-10.3); CREATININE 0.8 mg/dL (0.6-1.2); TOTAL PROTEIN 6.3 g/dL (6.7-8.2)
--- NOTE | 2020-03-21 17:24 | ED Physician Documentation ---
PD HPI GI BLEED - Stated complaint Stated Complaint: BLACK STOOL - Chief complaint Chief Complaint: Abd Pain - History obtained from History obtained from: Patient - History of Present Illness Timing - onset: Today Timing - duration: Days (1) Timing - details: Abrupt onset Pain level max: 0 Pain level now: 0 Associated symptoms: Maroon stool. No: Vomiting, Coffee ground emesis, Hematemesis, BRBPR, Black/tarry stool, Diarrhea, Constipation, Abdominal pain Contributing factors: Anticoagulated (Warfarin, Lovenox) Improved by: Other (Nothing) Worsened by: Other (Nothing) - Additional information Additional information: Patient states that he had a colonoscopy 3 days ago, several polyps were removed including a large polyp that was partially removed. He states that he had dark stool today. He is on warfarin and currently bridging with Lovenox. He has had several arterial bypasses and veins replaced. He does still smoke. No syncope or near syncope. Nothing makes it better or worse. No chest pain. No shortness of breath. Contrary to triage note, patient states that he is not having any abdominal pain to me Review of Systems Ten Systems: 10 systems reviewed and negative Constitutional: denies: Fever, Chills Respiratory: denies: Cough GI: denies: Abdominal Pain, Nausea, Vomiting, Diarrhea, Hematemesis Skin: denies: Rash Musculoskeletal: denies: Neck pain, Back pain Neurologic: denies: Headache PD PAST MEDICAL HISTORY - Past Medical History Cardiovascular: Hypertension, High cholesterol, Peripheral Vascular Disease, Deep vein thrombosis Respiratory: COPD, Other Endocrine/Autoimmune: Type 2 diabetes GI: GI bleed, Ulcers : None HEENT: Chronic vision loss Musculoskeletal: Osteoarthritis, Chronic back pain Derm: Other - Past Surgical History Past Surgical History: Yes General: Bowel surgery, EGD 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 Cardiovascular: CABG, Coronary stent, Cardiac catheterization, Vascular surgery, Angioplasty, Fempop bypass, Other - Present Medications Home Medications: Ambulatory Orders Medication Instructions Recorded Confirmed Aspirin [Aspir 81] 81 mg PO BID 10/02/13 11/13/14 Lisinopril 10 mg PO HS 10/02/13 11/13/14 Sertraline [Zoloft] 100 mg PO DAILY 10/02/13 11/13/14 Warfarin Sodium [Coumadin] 9 mg PO HS 10/02/13 11/13/14 gemfibroziL [Lopid] 600 mg PO BIDAC 10/02/13 11/13/14 Bisacodyl [Laxative] 1 ea PO QPM PRN 02/23/14 11/13/14 Calcium Carbonate [Calcium] 600 mg PO BID 02/23/14 11/13/14 raNITIdine [Zantac] 150 mg PO DAILY PRN 02/23/14 11/13/14 Albuterol Sulfate [Albuterol 1 inh INH Q4HR 11/13/14 11/13/14 Sulfate Hfa] Enoxaparin [Lovenox] 1 syr SQ DAILY 11/13/14 11/13/14 Fenofibrate 1 tab PO DAILY 11/13/14 11/13/14 [place]-3/Dha/Epa/Fish Oil [Fish Oil] 2 tab PO DAILY 11/13/14 11/13/14 Pravastatin Sodium 40 mg PO DAILY 11/13/14 11/13/14 Tiotropium [place] [Spiriva] 1 inh INH DAILY 11/13/14 11/13/14 - Allergies Allergies/Adverse Reactions: Allergies Allergy/AdvReac Type Severity Reaction Status Date / Time ezetimibe [From Zetia] Allergy Mild Itching Verified 03/21/20 16:36 methocarbamol [From Robaxin] Allergy resp Verified 03/21/20 16:36 morphine Allergy itches Verified 03/21/20 16:36 vancomycin Allergy Unknown Verified 03/21/20 16:36 atorvastatin calcium * AdvReac Intermediate Unknown Verified 03/21/20 16:36 [From Lipitor] simvastatin [From Zocor] AdvReac Intermediate Unknown Verified 03/21/20 16:36 tape adhesive Allergy Itching Uncoded 01/25/17 16:24 - Social History Does the pt smoke?: Yes Smoking Status: Current every day smoker Does the pt drink ETOH?: No Does the pt have substance abuse?: No - Immunizations Immunizations are current?: Yes - POLST Patient has POLST: No PD ED PE NORMAL - Vitals Vital signs reviewed: Yes - General General: Alert and oriented X 3, No acute distress, Well developed/nourished - HEENT HEENT: Moist mucous membranes - Neck Neck: Supple, no meningeal sign - Cardiac Cardiac: RRR, Strong equal pulses - Respiratory Respiratory: No respiratory distress, Clear bilaterally - Abdomen Abdomen: Normal bowel sounds, Soft, Non tender, Non distended - Male Male : Pt declined - Rectal Rectal: Pt declined - Back Back: No CVA TTP, No spinal TTP - Derm Derm: Warm and dry, No rash - Extremities Extremities: No edema - Neuro Neuro: Alert and oriented X 3 - Psych Psych: Normal mood, Normal affect Results - Vitals Vitals: Vital Signs - 24 hr 03/21/20 03/21/20 03/21/20 16:36 17:13 19:37 Temperature 36.7 C 36.7 C Heart Rate 66 66 62 Respiratory 18 18 12 Rate Blood Pressure 116/64 116/64 105/65 O2 Saturation 97 97 97 Oxygen O2 Source Room air - Labs Labs: Laboratory Tests 03/21/20 03/21/20 03/21/20 16:55 16:55 16:55 WBC 8.7 RBC 4.44 L Hgb 14.2 Hct 42.2 MCV 95.0 H MCH 32.0 H MCHC 33.6 RDW 13.0 Plt Count 178 MPV 9.5 Neut # (Auto) 5.3 Lymph # (Auto) 2.6 [place] # (Auto) 0.7 Eos # (Auto) 0.2 Baso # (Auto) 0.0 Absolute Nucleated RBC 0.00 Nucleated RBC % 0.0 PT 15.4 H INR 1.4 H Sodium Potassium Chloride Carbon Dioxide Anion Gap BUN Creatinine Estimated GFR (MDRD) Glucose Calcium Total Bilirubin AST ALT Alkaline Phosphatase Total Protein Albumin Globulin Albumin/Globulin Ratio Lipase Blood Type O POSITIVE Antibody Screen NEGATIVE 03/21/20 16:55 WBC RBC Hgb Hct MCV MCH MCHC RDW Plt Count MPV Neut # (Auto) Lymph # (Auto) [place] # (Auto) Eos # (Auto) Baso # (Auto) Absolute Nucleated RBC Nucleated RBC % PT INR Sodium 139 Potassium 3.9 Chloride 108 Carbon Dioxide 26 Anion Gap 5.0 L BUN 17 Creatinine 0.8 Estimated GFR (MDRD) 94 Glucose 99 Calcium 8.9 Total Bilirubin 0.5 AST 20 ALT 37 Alkaline Phosphatase 57 Total Protein 6.3 L Albumin 3.8 Globulin 2.5 Albumin/Globulin Ratio 1.5 Lipase 22 Blood Type Antibody Screen PD MEDICAL DECISION MAKING - ED course Complexity details: reviewed results, re-evaluated patient, considered differential, d/w patient, d/w chain sales consultant ED course: D/w Dr. Lucy MORALES sr. manager corporate communications for Dr. Cohen. recommends OBS overnight and repeat H/H in AM. We will hold the patient's Lovenox and warfarin tonight. He did have a second bowel movement in the emergency department with no blood in it. If the H&H is stable in the morning, we will plan to discharge home with outpatient follow-up. If the H&H drops or he has increased bleeding, will likely need transfer back to GI. Discussed the case with Dr. Rojas, hospitalist who accepts. This document was made in part using voice recognition software. While efforts are made to proofread this document, sound alike and grammatical errors may occur. Departure - Departure Disposition: ED Place in Observation Clinical Impression: Anticoagulant long-term use GI bleed Qualifiers: GI bleed type/associated pathology: melena Qualified Code(s): K92.1 - Melena Condition: Stable
[2020-03-21] MEDS ORDERED: ONDANSETRON 4 MG/2 ML VIAL IVP PRN (20:09)
[2020-03-21] MEDS ORDERED: SODIUM CHLORIDE FLUSH 0.9% 10 ML SYRINGE IVP PRN (20:09)
--- NOTE | 2020-03-21 20:17 | HISTORY & PHYSICAL EXAMINATION ---
Chief Complaint - Chief Complaint Chief Complaint: GI Bleed History of Present Illness - Admitted From Admitted From:: [facility] ED - History Obtained From Records Reviewed: yes History obtained from: patient and ED physician - History of Present Illness HPI Comment/Other: Patient is a 75-year-old male who underwent a routine colonoscopy 3 days ago at [facility] during which he had several polyps removed. There was a large polyp that was partially removed. He was also found to have internal hemorrhoids. He presented to the ED after the third occurrence of dark stools with blood in the toilet bowl today. 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 He is on Coumadin and currently being bridged with Lovenox after the colonoscopy. He has not had any more episodes of blood in his stool since presentation to the hospital. He is being admitted for further monitoring of his hemoglobin and vitals. 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 His brother from brain cancer. Social History Notes: He lives at home with his and his daughter recently moved back home with them. They reside in [place]. The patient has a 70- year history of smoking. At his highest he used to smoke 5 packs of cigarettes a day. Currently he smokes 1 pack/day. He rarely drinks alcohol and denies illicit drug use. - POLST Patient has POLST: No POLST Status: Full Code Meds/Allgy - Home Medications Home Medications: Ambulatory Orders Medication Instructions Recorded Confirmed Aspirin [Aspir 81] 81 mg PO BID 10/02/13 11/13/14 Lisinopril 10 mg PO HS 10/02/13 11/13/14 Sertraline [Zoloft] 100 mg PO DAILY 10/02/13 11/13/14 Warfarin Sodium [Coumadin] 9 mg PO HS 10/02/13 11/13/14 gemfibroziL [Lopid] 600 mg PO BIDAC 10/02/13 11/13/14 Bisacodyl [Laxative] 1 ea PO QPM PRN 02/23/14 11/13/14 Calcium Carbonate [Calcium] 600 mg PO BID 02/23/14 11/13/14 raNITIdine [Zantac] 150 mg PO DAILY PRN 02/23/14 11/13/14 Albuterol Sulfate [Albuterol 1 inh INH Q4HR 11/13/14 11/13/14 Sulfate Hfa] Enoxaparin [Lovenox] 1 syr SQ DAILY 11/13/14 11/13/14 Fenofibrate 1 tab PO DAILY 11/13/14 11/13/14 [place]-3/Dha/Epa/Fish Oil [Fish Oil] 2 tab PO DAILY 11/13/14 11/13/14 Pravastatin Sodium 40 mg PO DAILY 11/13/14 11/13/14 Tiotropium [place] [Spiriva] 1 inh INH DAILY 11/13/14 11/13/14 - Allergies Allergies/Adverse Reactions: Allergies Allergy/AdvReac Type Severity Reaction Status Date / Time ezetimibe [From Zetia] Allergy Mild Itching Verified 03/21/20 16:36 methocarbamol [From Robaxin] Allergy resp Verified 03/21/20 16:36 morphine Allergy itches Verified 03/21/20 16:36 vancomycin Allergy Unknown Verified 03/21/20 16:36 atorvastatin calcium * AdvReac Intermediate Unknown Verified 03/21/20 16:36 [From Lipitor] simvastatin [From Zocor] AdvReac Intermediate Unknown Verified 03/21/20 16:36 tape adhesive Allergy Itching Uncoded 01/25/17 16:24 Review of Systems - Constitutional Constitutional: denies: Fatigue, Fever, Chills - Eyes Eyes: denies: Pain - Ears, Nose & Throat Ears, Nose & Throat: denies: Ear pain - Cardiovascular Cariovascular: denies: Irregular heart rate, Chest pain, Edema, Lightheadedness, Syncope, Exertional dyspnea - Respiratory Respiratory: denies: SOB at rest, SOB with exertion - Gastrointestinal Gastrointestinal: reports: Black stools, Bloody stools. denies: Abdominal pain, Nausea, Vomiting - Genitourinary Genitourinary: denies: Dysuria, Frequency, Urgency, Hematuria - Musculoskeletal Musculoskeletal: denies: Muscle pain, Back pain, Muscle aches - Integumentary Integumentary: denies: Rash, Pruritis, Lesions - Neurological Neurological: denies: General weakness, Focal weakness, Headache, Dizziness - Psychiatric Psychiatric: denies: Depression, Anxiety - Endocrine Endocrine: denies: Polyuria, Polydypsia - Hematologic/Lymphatic Hematologic/Lymphatic: reports: Bruising (On abdomen from Lovenox shots.). denies: Anemia, Petechiae Prior Level of Functionality: Patient is independent of activities of daily living Exam - Vital Signs Vital Signs: Vital Signs x48h Temp Pulse Resp BP Pulse Ox 03/21/20 19:37 62 12 105/65 97 03/21/20 17:13 36.7 C 66 18 116/64 97 03/21/20 16:36 36.7 C 66 18 116/64 97 - Physical Exam General Appearance: positive: No acute distress, Alert Eyes Bilateral: positive: PERRL, EOMI ENT: positive: No signs of dehydration Neck: positive: No JVD, Trachea midline Respiratory: positive: Chest non-tender, No respiratory distress, Breath sounds nml. negative: Wheezes, Rales, Rhonchi Cardiovascular: positive: Regular rate & rhythm Abdomen: positive: Non-tender, No distention. negative: Guarding, Rebound Rectal: positive: Black stool, Bloody stool Back: positive: Nml inspection Skin: positive: Color nml, No rash, Warm, Dry, Other (Bruising noted on abdomen from Lovenox shots.) Extremities: positive: Non-tender, Full ROM, No pedal edema Neurologic/Psychiatric: positive: Oriented x3, CN's nml (2-12), Motor nml, Sensation nml, Mood/affect nml Conclusion/Plan - Problem List (1) GI bleed Conclusion/Plan: This could be secondary to the residual polyp bleeding versus internal hemorrhoids which were noted on colonoscopy as well. Patient made n.p.o. except for meds and sips of water. IV hydration with normal saline at 100 mils per hour. Patient's current hemoglobin is 14. Serial H&H every 8 hours times tomorrow. Protonix 40 mg IV twice daily ordered. We will hold patient's Coumadin and Lovenox for now. If no more bowel movements with blood and no significant drop in hemoglobin, willdischarge tomorrow. Qualifiers: GI bleed type/associated pathology: melena Qualified Code(s): K92.1 - Garett hudson (2) Hyperlipidemia Conclusion/Plan: On pravastatin, gemfibrozil and omega-3 fatty acids. Resume medications once verified. (3) Hypertension Conclusion/Plan: On lisinopril. We will resume medication once verified. (4) Hx of deep venous thrombosis Conclusion/Plan: INR is currently subtherapeutic at 1.4. We will hold Coumadin and Lovenox for now due to blood in stool. (5) Diabetes mellitus Conclusion/Plan: Patient currently n.p.o. except for meds. Accu-Cheks and Sliding scale insulin ordered. - Lab Results Fish Bones: 03/21/20 16:55 03/21/20 16:55 Core Measures - Anticipated LOS I expect patient to be DC'd or transferred within 96 hours.: Yes - DVT/VTE - Prophylaxis VTE/DVT Device ordered at admit?: Yes VTE/DVT Prophylaxis med ordered at admit?: No
[2020-03-21] MEDS: SODIUM CHLORIDE 0.9% 1,000 ML IV SCH (20:52)
[2020-03-21] MEDS: PANTOPRAZOLE 40 MG VIAL IVP SCH (21:35)
[2020-03-21] MEDS: INSULIN REGULAR HUMAN 300 UNIT/3 ML VIAL SUBQ SCH (23:32)
[2020-03-21] MEDS: SODIUM CHLORIDE FLUSH 0.9% 10 ML SYRINGE IVP SCH (23:32)
[2020-03-22] MEDS: INSULIN REGULAR HUMAN 300 UNIT/3 ML VIAL SUBQ SCH ×3 (05:32→19:33)
[2020-03-22] MEDS: SODIUM CHLORIDE 0.9% 1,000 ML IV SCH ×2 (05:33→17:22)
[2020-03-22 06:02] LABS: BASOPHILS % (AUTO) 0.4 %; EOSINOPHILS # (AUTO) 0.1 10^3/uL (0.0-0.7); EOSINOPHILS % (AUTO) 1.4 %; HGB - HEMOGLOBIN 9.8 g/dL (14.0-18.0); LYMPHOCYTES # (AUTO) 2.3 10^3/uL (1.5-3.5); LYMPHOCYTES % (AUTO) 26.4 %; MEAN CORPUSCULAR HEMOGLOBIN 31.5 pg (27.0-31.0); MEAN CORPUSCULAR HGB CONC 32.8 g/dL (32.0-36.0); MEAN CORPUSCULAR VOLUME 96.1 fL (80.0-94.0); MEAN PLATELET VOLUME 10.3 fL (7.4-11.4); MONOCYTES # (AUTO) 0.6 10^3/uL (0.0-1.0); MONOCYTES % (AUTO) 6.8 %; NEUTROPHILS # (AUTO) 5.5 10^3/uL (1.5-6.6); NEUTROPHILS % (AUTO) 64.6 %; PLT - PLATELET COUNT 151 10^3/uL (130-450); RED BLOOD COUNT 3.11 10^6/uL (4.70-6.10); RED CELL DISTRIBUTION WIDTH 13.1 % (12.0-15.0); WHITE BLOOD COUNT 8.6 x10^3/uL (4.8-10.8)
[2020-03-22 06:09] LABS: CALCIUM 7.4 mg/dL (8.5-10.3); CREATININE 0.6 mg/dL (0.6-1.2)
[2020-03-22] MEDS ORDERED: PANTOPRAZOLE 40 MG VIAL IVP SCH (07:00)
[2020-03-22] MEDS: IOVERSOL 320 100 ML VIAL IVP ONE ×2 (07:25→14:35)
[2020-03-22] MEDS ORDERED: IOVERSOL 320 100 ML VIAL IVP ONE ×2 (07:39→14:41)
[2020-03-22] MEDS ORDERED: IOVERSOL 320 50 ML VIAL ONE (07:39)
[2020-03-22] MEDS: PANTOPRAZOLE 40 MG VIAL IVP SCH (08:06)
[2020-03-22 08:52] LABS: HGB - HEMOGLOBIN 10.2 g/dL (14.0-18.0); MEAN CORPUSCULAR HGB CONC 33.9 g/dL (32.0-36.0); MEAN CORPUSCULAR VOLUME 97.4 fL (80.0-94.0); MEAN PLATELET VOLUME 9.6 fL (7.4-11.4); RED BLOOD COUNT 3.09 10^6/uL (4.70-6.10); RED CELL DISTRIBUTION WIDTH 13.1 % (12.0-15.0); WHITE BLOOD COUNT 9.5 x10^3/uL (4.8-10.8)
[2020-03-22] MEDS ORDERED: NICOTINE 14 MG PATCH TOP SCH (09:00)
--- NOTE | 2020-03-22 09:55 | CT Report ---
PROCEDURE: Abdomen/Pelvis W INDICATIONS: blood in stool s/p colonoscopy CONTRAST: IV CONTRAST: Optiray 320 ml: 100 PO CONTRAST: Optiray 320 ml50 TECHNIQUE: After the administration of 100 cc IV and dilute oral contrast, 5 mm thick sections acquired from the diaphragms to the symphysis. 5 mm thick coronal and sagittal reformats were acquired. For radiatio n dose reduction, the following was used: automated exposure control, adjustment of mA and/or kV acc ording to patient size. COMPARISON: CT lung cancer screening 02/16/2020. CT abdomen and pelvis without IV contrast 06/29/2015 . FINDINGS: Image quality: Excellent. ABDOMEN: Lung bases: Mild streaky opacity at the lung bases, new and likely atelectasis. No pleural effusion. Heart size is normal. Coronary artery calcifications. Solid organs: Liver and spleen are normal in size and enhancement. A few small well-circumscribed hy podensities in the liver which have the appearance of benign cyst or hemangioma. Gallbladder is dist ended. No calcified gallstones seen. No pericholecystic fluid. Biliary system is non dilated. Pancr eas enhances normally. Left adrenal nodule measuring 1 cm, (11/02), remotely 1 cm in 2015, most consis tent with a benign adenoma. Kidneys demonstrate normal size and enhancement, without hydronephrosis. Small simple appearing left renal cyst. Peritoneum and bowel: No obstruction. Diverticulosis. Normal appendix. No free fluid or air. Nodes and vessels: No retroperitoneal or mesenteric adenopathy by size criteria. Large infrarenal ab dominal aortic aneurysm measuring 5.6 cm, (), remotely 4.4 cm in 2015. Aneurysm sac is occluded. Post bypass stent graft. The right limb of the graft is occluded. 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 Second femorofemoral bypass is occluded. There is also a by pass along the right flank which is partially visualized and is occluded. Miscellaneous: Ventral abdominal wall hernia repair with mesh. Mild subcutaneous stranding. PELVIS: Genitourinary: Bladder wall thickness is normal. Prostatomegaly. Vasectomy clips. Miscellaneous: No inguinal hernias or adenopathy. Bones: No suspicious bony lesions. Multilevel DDD. No vertebral body compression fractures. IMPRESSION: 1. No source of blood per rectum identified. 2. Diverticulosis. No diverticulitis demonstrated. 3. Thrombosed infrarenal abdominal aortic aneurysm sac measuring 5.6 cm, enlarged compared to 2015. A prior stent graft repair and femorofemoral bypass. -Consider further evaluation with CTA abdominal aorta for evaluation for endoleak. 4. Distended gallbladder. This could be due to NPO status. Reviewed by: Zoran Lanier MD on 03/22/2020 9:54 AM PDT Approved by: Zoran Lanier MD on 03/22/2020 9:54 AM PDT Station ID: [id number]
[2020-03-22] MEDS ORDERED: DEXTROSE 5% 1,000 ML IV SCH (10:00)
[2020-03-22] MEDS: SODIUM CHLORIDE FLUSH 0.9% 10 ML SYRINGE IVP SCH ×2 (10:13→16:25)
--- NOTE | 2020-03-22 10:59 | PHARMACY PROGRESS NOTE ---
- Best Possible Medication History Admit Date and Time: 03/21/202008 Processed by: Pharmacy Medication History completed: Yes Patient Interview: Completed Secondary Source(s): Pharmacy records (PATIENT INTERVIEWED BY ESTIMATOR BINDING. PATIENT ABLE TO CONFIRM HOME MEDICATIONS) As the person ultimately responsible for medication therapy, providers are able to order a medication from an existing home medication list in [facility] via the "Reconcile Routine" prior to Confirmation of that medication by ground support equipment fitter. Such practice is discouraged except when the physician, in their clinical judgment, deems that a medical need exists for a medication without regard to previous use.
[2020-03-22 13:37] LABS: BASOPHILS % (AUTO) 0.5 %; EOSINOPHILS # (AUTO) 0.1 10^3/uL (0.0-0.7); EOSINOPHILS % (AUTO) 1.4 %; HGB - HEMOGLOBIN 9.7 g/dL (14.0-18.0); LYMPHOCYTES # (AUTO) 2.3 10^3/uL (1.5-3.5); LYMPHOCYTES % (AUTO) 27.6 %; MEAN CORPUSCULAR HEMOGLOBIN 32.3 pg (27.0-31.0); MEAN CORPUSCULAR HGB CONC 33.2 g/dL (32.0-36.0); MEAN CORPUSCULAR VOLUME 97.3 fL (80.0-94.0); MEAN PLATELET VOLUME 9.9 fL (7.4-11.4); MONOCYTES # (AUTO) 0.5 10^3/uL (0.0-1.0); MONOCYTES % (AUTO) 6.1 %; NEUTROPHILS # (AUTO) 5.4 10^3/uL (1.5-6.6); NEUTROPHILS % (AUTO) 63.9 %; PLT - PLATELET COUNT 143 10^3/uL (130-450); RED CELL DISTRIBUTION WIDTH 13.2 % (12.0-15.0); WHITE BLOOD COUNT 8.5 x10^3/uL (4.8-10.8)
[2020-03-22] MEDS ORDERED: IOVERSOL 320 50 ML VIAL PO ONE (15:17)
--- NOTE | 2020-03-22 15:44 | CT Report ---
PROCEDURE: ANGIO ABDOMEN/PELVIS W INDICATIONS: AAA REPAIRED, ENDOLEAK SUSPECTED CONTRAST: IV CONTRAST: Optiray 320 ml: 100 PO CONTRAST: *NO PO CONTRAST TECHNIQUE: After the administration of intravenous contrast, 2 and 5 mm sections acquired from the diaphragm to the iliac crests. 3-dimensional maximum intensity projection (MIP) coronal and sagittal reformats, a nd/or 3-dimensional volume rendering reformatting was then performed. For radiation dose reduction, the following was used: automated exposure control, adjustment of mA and/or kV according to patient size. COMPARISON: CT abdomen and pelvis without contrast dated 06/29/2015, CT abdomen and pelvis with cont rast dated 03/22/2020 FINDINGS: Image quality: Excellent. Extravascular tissues: Lung bases are clear. Heart size is normal. Liver and spleen are normal in size and enhancement. Gallbladder is distended without gallstones or gallbladder wall thickening not ed. Biliary system is non dilated. Pancreas enhances normally. No suspicious adrenal nodules. Smal l stable left adrenal nodule. Kidneys are normal in size and enhancement, without hydronephrosis. No n-opacified bowel loops demonstrate normal wall thickness and caliber. No free fluid or air. No ret roperitoneal or mesenteric adenopathy. No ventral hernias. No suspicious bony abnormalities. No ve rtebral body compression fractures. Abdominal aorta: An infrarenal abdominal aortic aneurysm is noted. There is evidence of remote surgi hernandez repair with an end to side anastomosis and subsequent stenting of the proximal right iliac limb. The right iliac limb is completely thrombosed. This is likely a chronic finding, as there are 2 separ ate femifemoral crossovers. One of the 2 crossover bypass grafts is chronically occluded. The other c rossover graft is not imaged in its entirety. However, it becomes tortuous and dilated to the right o f midline and appears to result in a pseudoaneurysm closest to the anastomosis in the right groin. Re ference image 152/10. There is also an occluded right axillofemoral bypass graft. The excluded aneurysm sac has definitely increased in size since the prior study, previously measurin g 4.4 cm, and now measuring 5.2 x 5.8 cm. Reference image 65/10. There is contrast that extends at th e superior edge of the surgical bypass posteriorly suggesting possible deficiency in the posterior wa ll of the bypass graft. Cannot exclude pseudoaneurysm. Reference image 34/7. 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 JOSLYN is chroni deborah occluded. Renal arteries: Grossly patent. IMPRESSION: 1. Remote surgical repair of abdominal aortic aneurysm with an end to side anastomosis and bilateral iliac limbs extending to the common femoral regions. 2. Definite interval enlargement of the excluded aneurysm sac, previously measuring 4.4 cm and curren tly measuring 5.2 x 5.8 cm. 3. Likely deficiency in the posterior wall of the superior aspect of the surgical graft, with contras t extending into the superior aspect of the excluded aneurysm. Cannot exclude endograft infection wit h pseudoaneurysm. 4. 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 T here have been 2 separate femorofemoral bypass grafts which have been placed. One of these is chronic ally occluded. 5. The patent femorofemoral bypass graft is quite tortuous to the right of midline and becomes quite dilated, with a probable pseudoaneurysm at the anastomosis with the common femoral. This has not been imaged in its entirety. The actual anastomosis and the more distal vessels are not imaged. The prese nce of a pseudoaneurysm implies the possibility of graft infection at or near the anastomosis in the right groin. 6. Chronic occlusion of the JOSLYN, as expected post surgical aortobifemoral graft repair. Moderate shanelle ac stenosis and moderate to severe SMA origin stenosis. 7. Chronically occluded right ax-fem bypass graft. Reviewed by: Fernando Delcid MD on 03/22/2020 3:42 PM PDT Approved by: Fernando Delcid MD on 03/22/2020 3:42 PM PDT Station ID: [id number]
--- NOTE | 2020-03-22 15:50 | CONSULTATION NOTE ---
Referring Provider Name of Referring Provider:: Zulma Consult Date: 03/22/20 Chief Complaint - Chief Complaint Chief Complaint: Bright red blood per rectum History of Present Illness - Admitted From Admitted From:: ED - History Obtained From Records Reviewed: Provider's notes History obtained from: Providers and records and patient Exam Limitations: None - History of Present Illness HPI Comment/Other: Pleasant 75-year-old gentleman who presented to the emergency department last evening. He has a family history of colon cancer and underwent a colonoscopy 3 days ago at [facility] in [place]. At that time he had multiple polyps removed.There was also a large polyp that was only partially removed.Additionally, Mr. Eckert has a significant history of vascular disease. He has had angioplasty as well as femoral popliteal bypass.He reports that all o f his prior endovascular work was done at [facility].H&H this morning was 9.8 after multiple episodes of bright and dark red blood per rectum. He was experiencing mild abdominal pain this morning and cramping but that has since improved. Repeat H&H was just over 10 and then repeat this afternoon was 9.7.He underwent a CT scan of the abdomen and pelvis which did not note any significant abnormalities of the bowel but did raise concern for an aorto enteric fistula related to a 5.6 cm aortic aneurysm. CTA was suggested but has not been completed. 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 His brother from brain cancer. Social History Notes: He lives at home with his and his daughter recently moved back home with them. They reside in [place]. The patient has a 70- year history of smoking. At his highest he used to smoke 5 packs of cigarettes a day. Currently he smokes 1 pack/day. He rarely drinks alcohol and denies illicit drug use. - POLST Patient has POLST: No POLST Status: Full Code Meds/Allgy - Home Medications Home Medications: Ambulatory Orders Medication Instructions Recorded Confirmed Aspirin [Aspir 81] 81 mg PO BID 10/02/13 03/22/20 Lisinopril 10 mg PO HS 10/02/13 03/22/20 Sertraline [Zoloft] 100 mg PO DAILY 10/02/13 03/22/20 Calcium Carbonate [Calcium] 600 mg PO BID 02/23/14 03/22/20 Enoxaparin [Lovenox] 1 syr SQ DAILY PRN 11/13/14 03/22/20 [place]-3/Dha/Epa/Fish Oil [Fish Oil] 1 tab PO DAILY 11/13/14 03/22/20 Pravastatin Sodium 40 mg PO QPM 11/13/14 03/22/20 Acetaminophen [Tylenol Extra 500 mg PO PRN PRN 03/22/20 03/22/20 Strength] Fenofibrate [Tricor] 48 mg PO DAILY 03/22/20 03/22/20 Ibuprofen [Motrin Ib] 200 mg PO DAILY PRN 03/22/20 03/22/20 Lisinopril [Zestril] 20 mg PO DAILY 03/22/20 03/22/20 Trazodone HCl 100 mg PO QPM 03/22/20 03/22/20 Warfarin [Coumadin] 8 mg PO QPM 03/22/20 03/22/20 - Allergies Allergies/Adverse Reactions: Allergies Allergy/AdvReac Type Severity Reaction Status Date / Time ezetimibe [From Zetia] Allergy Mild Itching Verified 03/21/20 16:36 methocarbamol [From Robaxin] Allergy resp Verified 03/21/20 16:36 morphine Allergy itches Verified 03/21/20 16:36 vancomycin Allergy Unknown Verified 03/21/20 16:36 atorvastatin calcium * AdvReac Intermediate Unknown Verified 03/21/20 16:36 [From Lipitor] simvastatin [From Zocor] AdvReac Intermediate Unknown Verified 03/21/20 16:36 tape adhesive Allergy Itching Uncoded 01/25/17 16:24 Review of Systems - Constitutional Constitutional: reports: Fatigue. denies: Fever, Chills - Eyes Eyes: denies: Pain - Cardiovascular Cariovascular: denies: Chest pain - Respiratory Respiratory: denies: Cough, Wheezing - Gastrointestinal Gastrointestinal: reports: Abdominal pain, Diarrhea, Rectal bleeding, Black stools, Bloody stools. denies: Nausea, Vomiting, Coffee grounds emesis, Reflux/heartburn - Integumentary Integumentary: denies: Rash - All Other Systems All Other Systems: reports: Reviewed and negative Exam - Vital Signs Reviewed Vital Signs: Yes Vital Signs: Vital Signs x48h Temp Pulse Resp BP Pulse Ox 03/22/20 15:32 36.9 C 66 16 118/58 L 95 03/22/20 12:01 36.8 C 65 16 102/53 L 95 03/22/20 08:00 36.4 C L 61 17 115/66 95 - Physical Exam General Appearance: positive: No acute distress, Alert Eyes Bilateral: positive: Normal inspection, PERRL, EOMI Respiratory: positive: Chest non-tender, No respiratory distress Cardiovascular: positive: Regular rate & rhythm Abdomen: positive: Non-tender, Nml bowel sounds, No distention Neurologic/Psychiatric: positive: Oriented x3 Conclusion and Plan - Lab Results Laboratory Results 03/22/20 13:25: WBC 8.5, RBC 3.00 L, Hgb 9.7 L, Hct 29.2 L, MCV 97.3 H, MCH 32.3 H, MCHC 33.2, RDW 13.2, Plt Count 143, MPV 9.9, Neut # (Auto) 5.4, Lymph # (Auto) 2.3, [place] # (Auto) 0.5, Eos # (Auto) 0.1, Baso # (Auto) 0.0, Absolute Nucleated RBC 0.00, Nucleated RBC % 0.0 03/22/20 11:54: POC Whole Bld Glucose 94 03/22/20 08:45: WBC 9.5, RBC 3.09 L, Hgb 10.2 L, Hct 30.1 L, MCV 97.4 H, MCH 33.0 H, MCHC 33.9, RDW 13.1, Plt Count 146, MPV 9.6 03/22/20 05:30: Sodium 140, Potassium 3.8, Chloride 111, Carbon Dioxide 25, Anion Gap 4.0 L, BUN 13, Creatinine 0.6, Estimated GFR (MDRD) 131, Glucose 100, Calcium 7.4 L 03/22/20 05:30: WBC 8.6, RBC 3.11 L, Hgb 9.8 L, Hct 29.9 L, MCV 96.1 H, MCH 31.5 H, MCHC 32.8, RDW 13.1, Plt Count 151, MPV 10.3, Neut # (Auto) 5.5, Lymph # (Auto) 2.3, [place] # (Auto) 0.6, Eos # (Auto) 0.1, Baso # (Auto) 0.0, Absolute N ucleated RBC 0.00, Nucleated RBC % 0.0 03/22/20 05:27: POC Whole Bld Glucose 98 03/21/20 23:30: POC Whole Bld Glucose 134 H 03/21/20 21:08: POC Whole Bld Glucose 132 H 03/21/20 16:55: Sodium 139, Potassium 3.9, Chloride 108, Carbon Dioxide 26, Anion Gap 5.0 L, BUN 17, Creatinine 0.8, Estimated GFR (MDRD) 94, Glucose 99, Calcium 8.9, Total Bilirubin 0.5, AST 20, ALT 37, Alkaline Phosphatase 57, Total Protein 6.3 L, Albumin 3.8, Globulin 2.5, Albumin/Globulin Ratio 1.5, Lipase 22 03/21/20 16:55: PT 15.4 H, INR 1.4 H 03/21/20 16:55: WBC 8.7, RBC 4.44 L, Hgb 14.2, Hct 42.2, MCV 95.0 H, MCH 32.0 H, MCHC 33.6, RDW 13.0, Plt Count 178, MPV 9.5, Neut # (Auto) 5.3, Lymph # (Auto) 2.6, [place] # (Auto) 0.7, Eos # (Auto) 0.2, Baso # (Auto) 0.0, Absolute Nucleated RBC 0.00, Nucleated RBC % 0.0 03/21/20 16:55: Blood Type O POSITIVE, Antibody Screen NEGATIVE, Crossmatch IS Only See Detail - Diagnostic Imaging Results Diagnostic Imaging Results: positive: Final report reviewed - Plan Plan: After discussion with both the pateint and Dr. Maya, I believe it to be in the patient's best interest to be transferred to a higher level of care. I have recommended [facility] in [place] since this is where his procedures were done. We have no endovasular capability or even vascular grafts to deal with the most troubling of possibilities. The patient is in agreement with this plan.
--- NOTE | 2020-03-22 17:01 | Discharge Plan ---
Discharge Plan Problem Reviewed?: Yes Disposition: 02 Transfer Acute Care Hosp Condition: Stable No Smoking: If you smoke, Please STOP! Call for help. Follow-up with: Sophia Coe PA-C [Primary Care Provider] -
--- NOTE | 2020-03-22 17:02 | DISCHARGE SUMMARY ---
Discharge Summary Admit Date: 03/21/20 Discharge Date: 03/22/20 Discharging Provider: Dr Gloria Maya Primary Care Provider: HALEY Coe Code Status: Attempt Resuscitation Condition at Discharge: Fair Discharge Disposition: 02 Transfer Acute Care Hosp Discharge Facility Name: [facility] History of Present Illness: From the admission H&P of DR Cameron Rojas: Patient is a 75-year-old male with a Hx of HTN, DM, hyperlipidemia and PVD, who underwent a routine colonoscopy 3 days ago at [facility] during which he had several polyps removed. There was a large polyp that was partially removed. He was also found to have internal hemorrhoids. He presented to the ED after the third occurrence of dark stools with blood in the toilet bowl today. 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 He is on Coumadin for thrombosis and currently being bridged with Lovenox after the colonoscopy, as the Coumadin is restarting. He is being placed in Observation for further monitoring of his hemoglobin, BMs and vitals. He will be cross-matched. Code status he wishes is : Full Code. - HOSPITAL COURSE Hospital Course: (1) GI bleed In the differential is that the residual polyp could be bleeding versus internal hemorrhoids bleeding, which were noted on colonoscopy as well. Protonix 40 mg IV bid ordered for empiric treatment of an ulcer. Patient was n.p.o. except for meds and sips of water and IV hydration started with normal saline at 100cc/hour. We held patient's Coumadin and Lovenox. His H/H were followed q8h and the Hgb dropped from 14>> 10 by the next day, but melena slowed. A General Surgery consult was requested, who wanted a CT and CTA abd/pelvis before taking him for a colonoscopy. The findings on CTA were abnormal (see below); he did not undergo colonoscopy here. 2) PVD This pt has extensive history of PVD with leg bypasses and AAA with endograft and toes amputated due to PVD. He continues to smoke cigarettes (5PPd has de creased to 1PPD). The importance of cessation of tobacco use was discussed. 3) Endoleak of aortic graft The CTA of abd/pelvis showed an infra-renal AAA with remote surgical repair with end-to-side anastomosis and bilateral iliac limbs. The excluded aneurysm sac has expanded from 4.4 cm, previous size, to 5.2 x 5.8 cm, and the posterior- superior aspect of the graft has a deficiency, with contrast seen extending into the excluded aneurysm. With these findings, transfer was requested, and he was accepted in transfer to [facility], where he was transferred in stable condition (his vital signs were normal) by [facility] ambulance. The Hospitalist accepting requested that 1U of PRBCs be started to be transfused en route. 4) Infected aortic endograft, possibly The deficiency in the graft was felt to be due to endograft infection or pseudoaneurysm. 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 (8) Diabetes mellitus Patient was kept n.p.o. except for meds, he got D5 in his iv fluids, and Accu- Cheks and Sliding scale insulin were ordered. (9) Hypertension He was kept on his home dose of Lisinopril. (10) Hyperlipidemia He was kept on Pravastatin, Gemfibrozil and omega-3 fatty acids. (11) Hx of deep venous thrombosis The INR was currently subtherapeutic at 1.4, but he was in the midst of resuming Coumadin with Lovenox bridging. The Coumadin and Lovenox were stopped due to blood in stool. (12) Superficial bruising of abdominal wall There was a large, non-painful, purple bruise of the lower right abdominal wall from his own Lovenox administrations before this admission. - ALLERGIES Allergies/Adverse Reactions: Allergies Allergy/AdvReac Type Severity Reaction Status Date / Time ezetimibe [From Zetia] Allergy Mild Itching Verified 03/21/20 16:36 methocarbamol [From Robaxin] Allergy resp Verified 03/21/20 16:36 morphine Allergy itches Verified 03/21/20 16:36 vancomycin Allergy Unknown Verified 03/21/20 16:36 atorvastatin calcium * AdvReac Intermediate Unknown Verified 03/21/20 16:36 [From Lipitor] simvastatin [From Zocor] AdvReac Intermediate Unknown Verified 03/21/20 16:36 tape adhesive Allergy Itching Uncoded 01/25/17 16:24 - MEDICATIONS Home Medications: Ambulatory Orders Medication Instructions Recorded Confirmed Aspirin [Aspir 81] 81 mg PO BID 10/02/13 03/22/20 Lisinopril 10 mg PO HS 10/02/13 03/22/20 Sertraline [Zoloft] 100 mg PO DAILY 10/02/13 03/22/20 Calcium Carbonate [Calcium] 600 mg PO BID 02/23/14 03/22/20 Enoxaparin [Lovenox] 1 syr SQ DAILY PRN 11/13/14 03/22/20 [place]-3/Dha/Epa/Fish Oil [Fish Oil] 1 tab PO DAILY 11/13/14 03/22/20 Pravastatin Sodium 40 mg PO QPM 11/13/14 03/22/20 Acetaminophen [Tylenol Extra 500 mg PO PRN PRN 03/22/20 03/22/20 Strength] Fenofibrate [Tricor] 48 mg PO DAILY 03/22/20 03/22/20 Ibuprofen [Motrin Ib] 200 mg PO DAILY PRN 03/22/20 03/22/20 Lisinopril [Zestril] 20 mg PO DAILY 03/22/20 03/22/20 Trazodone HCl 100 mg PO QPM 03/22/20 03/22/20 Warfarin [Coumadin] 8 mg PO QPM 03/22/20 03/22/20 - PHYSICAL EXAM AT DISCHARGE General Appearance: positive: No acute distress, Alert Eyes Bilateral: positive: Normal inspection, EOMI ENT: positive: ENT inspection nml, No signs of dehydration Neck: positive: Nml inspection, No JVD Respiratory: positive: No respiratory distress Cardiovascular: positive: Regular rate & rhythm, No murmur Abdomen: positive: Non-tender, No distention, Other (Large bruise of R abd wall) Skin: positive: Pallor Extremities: positive: Non-tender, No pedal edema Neurologic/Psychiatric: positive: Oriented x3 (Non-focal ) - LABS Result Diagrams: 03/22/20 13:25 03/22/20 05:30 - DIAGNOSTIC IMAGING Diagnostic Imaging Results: Final report reviewed - FOLLOW UP Follow Up: This will be determined after his discharge from [facility]. - TIME SPENT Time Spent in Discharge (Minutes): 65
[2020-03-22] MEDS ORDERED: ACETAMINOPHEN 325 MG TABLET PO ONE (17:03)
[2020-03-22 17:58] VITALS: BP 115/62
== END 2020-03-22 19:00 | disposition short-term general hospital (02) ==
LOC: ED 16:28 → MS2 20:09
PROVIDERS: ADMIT Internal Medicine; ATTEND Internal Medicine
DX: K92.1 Melena (principal); T82.330A Leakage of aortic (bifurcation) graft (replacement), initial encounter; T82.868A Thrombosis due to vascular prosthetic devices, implants and grafts, initial encounter; Y83.2 Surgical operation with anastomosis, bypass or graft as the cause of abnormal reaction of the patient, or of later complication, without mention of misadventure at the time of the procedure; K55.069 Acute infarction of intestine, part and extent unspecified; D64.9 Anemia, unspecified; E78.5 Hyperlipidemia, unspecified; I10 Essential (primary) hypertension; E11.51 Type 2 diabetes mellitus with diabetic peripheral angiopathy without gangrene; K57.30 Diverticulosis of large intestine without perforation or abscess without bleeding; K64.8 Other hemorrhoids; L76.01 Intraoperative hemorrhage and hematoma of skin and subcutaneous tissue complicating a dermatologic procedure; Y84.8 Other medical procedures as the cause of abnormal reaction of the patient, or of later complication, without mention of misadventure at the time of the procedure; F17.210 Nicotine dependence, cigarettes, uncomplicated; H54.7 Unspecified visual loss; Y92.009 Unspecified place in unspecified non-institutional (private) residence as the place of occurrence of the external cause; Z89.429 Acquired absence of other toe(s), unspecified side; Z95.828 Presence of other vascular implants and grafts; Z98.890 Other specified postprocedural states; Z86.718 Personal history of other venous thrombosis and embolism; Z79.01 Long term (current) use of anticoagulants; Z79.82 Long term (current) use of aspirin; Z79.51 Long term (current) use of inhaled steroids; Z95.1 Presence of aortocoronary bypass graft; Z95.5 Presence of coronary angioplasty implant and graft
CPT/HCPCS: 36415; 36430; 74174; 74177; 80048; 80053; 83690; 85025; 85027; 85610; 86850; 86900; 86901; 86920; 93005; 96361; 96374; 96376; 99284; 99285; A9270; G0378; P9016; Q9967; 82272; 85014; 85018

== ENCOUNTER 2020-03-22 19:00 | Outpatient (CLI) | payer MEDICARE, OTHER | END 2020-03-22 19:01 | disposition short-term general hospital (02) | LOC: EMS 19:00 | PROVIDERS: ATTEND Surgery | DX: K92.1 Melena (principal) | CPT/HCPCS: A0425; A0426 ==

== ENCOUNTER 2020-03-26 08:00 | Outpatient (CLI) | payer MEDICARE, OTHER | END 2020-03-26 23:59 | disposition home or self-care (01) | LOC: LAB.WCP 08:00 | PROVIDERS: ATTEND Family Medicine | DX: I71.4 Abdominal aortic aneurysm, without rupture (principal); I82.90 Acute embolism and thrombosis of unspecified vein; I73.9 Peripheral vascular disease, unspecified; Z79.01 Long term (current) use of anticoagulants ==

== ENCOUNTER 2020-04-01 08:00 | Outpatient (CLI) | payer MEDICARE, OTHER | END 2020-04-01 23:59 | disposition home or self-care (01) | LOC: LAB.WCP 08:00 | PROVIDERS: ATTEND Physician Assistant Medical | DX: I82.409 Acute embolism and thrombosis of unspecified deep veins of unspecified lower extremity (principal); Z79.01 Long term (current) use of anticoagulants ==

== ENCOUNTER 2020-04-15 08:00 | Outpatient (CLI) | payer MEDICARE, OTHER | END 2020-04-15 23:59 | disposition home or self-care (01) | LOC: LAB.WCP 08:00 | PROVIDERS: ATTEND Physician Assistant Medical | DX: I82.409 Acute embolism and thrombosis of unspecified deep veins of unspecified lower extremity (principal); Z79.01 Long term (current) use of anticoagulants ==

== ENCOUNTER 2020-04-30 08:00 | Outpatient (CLI) | payer MEDICARE, OTHER | END 2020-04-30 23:59 | disposition home or self-care (01) | LOC: LAB.WCP 08:00 | PROVIDERS: ATTEND Family Medicine | DX: Z79.01 Long term (current) use of anticoagulants (principal) ==

== ENCOUNTER 2020-05-07 09:57 | Outpatient (CLI) | payer MEDICARE, OTHER ==
[2020-05-07 11:50] LABS: BASOPHILS % (AUTO) 0.6 %; EOSINOPHILS # (AUTO) 0.1 10^3/uL (0.0-0.7); EOSINOPHILS % (AUTO) 1.7 %; HGB - HEMOGLOBIN 14.3 g/dL (14.0-18.0); LYMPHOCYTES # (AUTO) 1.9 10^3/uL (1.5-3.5); LYMPHOCYTES % (AUTO) 27.9 %; MEAN CORPUSCULAR HEMOGLOBIN 29.9 pg (27.0-31.0); MEAN CORPUSCULAR VOLUME 96.5 fL (80.0-94.0); MEAN PLATELET VOLUME 10.3 fL (7.4-11.4); MONOCYTES # (AUTO) 0.5 10^3/uL (0.0-1.0); MONOCYTES % (AUTO) 7.1 %; NEUTROPHILS # (AUTO) 4.2 10^3/uL (1.5-6.6); NEUTROPHILS % (AUTO) 62.5 %; PLT - PLATELET COUNT 245 10^3/uL (130-450); RED BLOOD COUNT 4.79 10^6/uL (4.70-6.10); RED CELL DISTRIBUTION WIDTH 13.4 % (12.0-15.0); WHITE BLOOD COUNT 6.6 x10^3/uL (4.8-10.8)
[2020-05-07 12:24] LABS: HEMOGLOBIN A1c% 5.1 % (4.27-6.07)
[2020-05-07 12:27] LABS: ALBUMIN/GLOBULIN RATIO 1.3 (1.0-2.2); ALKALINE PHOSPHATASE 60 IU/L (42-121); ALT ALANINE AMINOTRANSFERASE 14 IU/L (10-60); AST ASPARTATE AMINOTRANSFERASE 14 IU/L (10-42); BILIRUBIN,TOTAL 0.4 mg/dL (0.2-1.0); BUN - BLOOD UREA NITROGEN 14 mg/dL (6-20); CARBON DIOXIDE - CO2 28 mmol/L (21-32); CHLORIDE 106 mmol/L (101-111); CHOL/HDL RATIO 4.1 (<5.0); CHOLESTEROL 160 mg/dL; CREATININE 0.8 mg/dL (0.6-1.2); GLUCOSE 104 mg/dL (70-100); HDL CHOLESTEROL 39 mg/dL; LDL CHOLESTEROL,CALCULATED 99 mg/dL; LDL/HDL RATIO 2.5 (<3.6); SODIUM 141 mmol/L (135-145); TOTAL PROTEIN 7.1 g/dL (6.7-8.2); VLDL CHOLESTEROL 22 mg/dL
[2020-05-07 12:42] LABS: % IRON SATURATION 9 % (20-50); IRON 41 ug/dL (45-182); TOTAL IRON BINDING CAPACITY 461 ug/dL (250-450); TRANSFERRIN 329 mg/dL (180-329)
== END 2020-05-07 09:58 | disposition home or self-care (01) ==
LOC: LAB.WCP 09:57
PROVIDERS: ATTEND Physician Assistant Medical
DX: K92.2 Gastrointestinal hemorrhage, unspecified (principal); E11.9 Type 2 diabetes mellitus without complications
CPT/HCPCS: 36415; 80053; 80061; 82728; 83036; 83540; 83721; 84466; 85025

== ENCOUNTER 2020-05-28 08:00 | Outpatient (CLI) | payer MEDICARE, OTHER | END 2020-05-28 23:59 | disposition home or self-care (01) | LOC: LAB.WCP 08:00 | PROVIDERS: ATTEND Family Medicine | DX: Z79.01 Long term (current) use of anticoagulants (principal) ==

== ENCOUNTER 2020-07-02 08:00 | Outpatient (CLI) | payer MEDICARE, OTHER | END 2020-07-02 23:59 | disposition home or self-care (01) | LOC: LAB.WCP 08:00 | PROVIDERS: ATTEND Physician Assistant | DX: Z79.01 Long term (current) use of anticoagulants (principal) ==

== ENCOUNTER 2020-08-09 08:00 | Outpatient (CLI) | payer MEDICARE, OTHER ==
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
== END 2020-08-09 23:59 | disposition home or self-care (01) ==
LOC: LAB.WCP 08:00
PROVIDERS: ATTEND Physician Assistant Medical
DX: Z79.01 Long term (current) use of anticoagulants (principal)

== ENCOUNTER 2020-08-23 08:00 | Outpatient (CLI) | payer MEDICARE, OTHER | END 2020-08-23 23:59 | disposition home or self-care (01) | LOC: LAB.WCP 08:00 | PROVIDERS: ATTEND Physician Assistant Medical | DX: Z79.01 Long term (current) use of anticoagulants (principal) ==

== ENCOUNTER 2020-09-11 10:16 | Outpatient (CLI) | payer MEDICARE, OTHER ==
[2020-09-11 11:07] LABS: HEMOGLOBIN A1c% 5.8 % (4.27-6.07)
[2020-09-11 11:14] LABS: ALBUMIN 3.9 g/dL (3.2-5.5); ALBUMIN/GLOBULIN RATIO 1.1 (1.0-2.2); ALKALINE PHOSPHATASE 68 IU/L (42-121); ALT ALANINE AMINOTRANSFERASE 16 IU/L (10-60); AST ASPARTATE AMINOTRANSFERASE 17 IU/L (10-42); BILIRUBIN,TOTAL 0.5 mg/dL (0.2-1.0); BUN - BLOOD UREA NITROGEN 16 mg/dL (6-20); CALCIUM 9.8 mg/dL (8.5-10.3); CARBON DIOXIDE - CO2 28 mmol/L (21-32); CHLORIDE 100 mmol/L (101-111); CHOL/HDL RATIO 4.5 (<5.0); CHOLESTEROL 186 mg/dL; CREATININE 0.9 mg/dL (0.6-1.2); GLUCOSE 126 mg/dL (70-100); HDL CHOLESTEROL 41 mg/dL; LDL CHOLESTEROL,CALCULATED 121 mg/dL; TOTAL PROTEIN 7.3 g/dL (6.7-8.2); VLDL CHOLESTEROL 24 mg/dL
== END 2020-09-11 10:17 | disposition home or self-care (01) ==
LOC: RT 10:16
PROVIDERS: ATTEND Radiology Vascular & Interventional Radiology
DX: I10 Essential (primary) hypertension (principal); E11.9 Type 2 diabetes mellitus without complications
CPT/HCPCS: 36415; 80053; 80061; 83036; 83721; 93005

== ENCOUNTER 2020-10-01 08:00 | Outpatient (CLI) | payer MEDICARE, OTHER | END 2020-10-01 23:59 | disposition home or self-care (01) | LOC: LAB.N 08:00 | PROVIDERS: ATTEND Physician Assistant Medical | DX: I71.4 Abdominal aortic aneurysm, without rupture (principal); I72.4 Aneurysm of artery of lower extremity; Z79.01 Long term (current) use of anticoagulants ==

== ENCOUNTER 2020-10-15 08:00 | Outpatient (CLI) | payer MEDICARE, OTHER | END 2020-10-15 23:59 | disposition home or self-care (01) | LOC: LAB.N 08:00 | PROVIDERS: ATTEND Physician Assistant Medical | DX: Z79.01 Long term (current) use of anticoagulants (principal); I72.4 Aneurysm of artery of lower extremity; I71.4 Abdominal aortic aneurysm, without rupture ==

== ENCOUNTER 2020-10-22 08:00 | Outpatient (CLI) | payer MEDICARE, OTHER | END 2020-10-22 23:59 | disposition home or self-care (01) | LOC: LAB.N 08:00 | PROVIDERS: ATTEND Physician Assistant Medical | DX: I71.4 Abdominal aortic aneurysm, without rupture (principal); I72.4 Aneurysm of artery of lower extremity; Z79.01 Long term (current) use of anticoagulants ==

== ENCOUNTER 2020-11-05 08:00 | Outpatient (CLI) | payer MEDICARE, OTHER | END 2020-11-05 23:59 | disposition home or self-care (01) | LOC: LAB.N 08:00 | PROVIDERS: ATTEND Physician Assistant Medical | DX: Z79.01 Long term (current) use of anticoagulants (principal); I82.409 Acute embolism and thrombosis of unspecified deep veins of unspecified lower extremity ==

== ENCOUNTER 2020-11-26 08:00 | Outpatient (CLI) | payer MEDICARE, OTHER | END 2020-11-26 23:59 | disposition home or self-care (01) | LOC: LAB.N 08:00 | PROVIDERS: ATTEND Physician Assistant Medical | DX: I82.409 Acute embolism and thrombosis of unspecified deep veins of unspecified lower extremity (principal); Z79.01 Long term (current) use of anticoagulants ==

== ENCOUNTER 2020-12-03 08:00 | Outpatient (CLI) | payer MEDICARE, OTHER | END 2020-12-03 23:59 | disposition home or self-care (01) | LOC: LAB.N 08:00 | PROVIDERS: ATTEND Physician Assistant Medical | DX: I82.90 Acute embolism and thrombosis of unspecified vein (principal); Z79.01 Long term (current) use of anticoagulants ==

== ENCOUNTER 2020-12-17 13:03 | Outpatient (CLI) | payer MEDICARE, OTHER ==
[2020-12-17 17:50] LABS: BASOPHILS # (AUTO) 0.1 10^3/uL (0.0-0.1); BASOPHILS % (AUTO) 0.5 %; EOSINOPHILS # (AUTO) 0.2 10^3/uL (0.0-0.7); EOSINOPHILS % (AUTO) 1.6 %; HCT - HEMATOCRIT 53.5 % (42.0-52.0); HGB - HEMOGLOBIN 17.6 g/dL (14.0-18.0); LYMPHOCYTES # (AUTO) 2.9 10^3/uL (1.5-3.5); LYMPHOCYTES % (AUTO) 30.3 %; MEAN CORPUSCULAR HEMOGLOBIN 31.4 pg (27.0-31.0); MEAN CORPUSCULAR HGB CONC 32.9 g/dL (32.0-36.0); MEAN CORPUSCULAR VOLUME 95.4 fL (80.0-94.0); MEAN PLATELET VOLUME 10.4 fL (7.4-11.4); MONOCYTES # (AUTO) 0.7 10^3/uL (0.0-1.0); MONOCYTES % (AUTO) 6.8 %; NEUTROPHILS # (AUTO) 5.8 10^3/uL (1.5-6.6); NEUTROPHILS % (AUTO) 60.5 %; PLT - PLATELET COUNT 198 10^3/uL (130-450); RED BLOOD COUNT 5.61 10^6/uL (4.70-6.10); RED CELL DISTRIBUTION WIDTH 13.3 % (12.0-15.0); WHITE BLOOD COUNT 9.7 x10^3/uL (4.8-10.8)
[2020-12-17 18:21] LABS: ALBUMIN 4.1 g/dL (3.2-5.5); ALBUMIN/GLOBULIN RATIO 1.2 (1.0-2.2); ALKALINE PHOSPHATASE 65 IU/L (42-121); ALT ALANINE AMINOTRANSFERASE 16 IU/L (10-60); AST ASPARTATE AMINOTRANSFERASE 15 IU/L (10-42); BILIRUBIN,TOTAL 0.6 mg/dL (0.2-1.0); BUN - BLOOD UREA NITROGEN 15 mg/dL (6-20); CARBON DIOXIDE - CO2 26 mmol/L (21-32); CHLORIDE 107 mmol/L (101-111); CHOL/HDL RATIO 4.9 (<5.0); CHOLESTEROL 195 mg/dL; CREATININE 0.7 mg/dL (0.6-1.2); GFR - MDRD 110 (>89); GLUCOSE 98 mg/dL (70-100); HDL CHOLESTEROL 40 mg/dL; LDL CHOLESTEROL,CALCULATED 125 mg/dL; LDL/HDL RATIO 3.1 (<3.6); POTASSIUM 4.3 mmol/L (3.5-5.0); SODIUM 140 mmol/L (135-145); TOTAL PROTEIN 7.4 g/dL (6.7-8.2); TRIGLYCERIDES 149 mg/dL; VLDL CHOLESTEROL 30 mg/dL
[2020-12-17 20:44] LABS: ESTIMATED AVERAGE GLUCOSE 120 mg/dL (70-100); HEMOGLOBIN A1c% 5.8 % (4.27-6.07)
== END 2020-12-17 13:04 | disposition home or self-care (01) ==
LOC: LAB.N 13:03
PROVIDERS: ATTEND Physician Assistant Medical
DX: K92.2 Gastrointestinal hemorrhage, unspecified (principal); E11.9 Type 2 diabetes mellitus without complications
CPT/HCPCS: 36415; 80053; 80061; 83036; 83721; 85025

== ENCOUNTER 2021-01-07 08:00 | Outpatient (CLI) | payer MEDICARE, OTHER | END 2021-01-07 23:59 | disposition home or self-care (01) | LOC: LAB.N 08:00 | PROVIDERS: ATTEND Physician Assistant Medical | DX: I82.90 Acute embolism and thrombosis of unspecified vein (principal); Z79.01 Long term (current) use of anticoagulants ==

== ENCOUNTER 2021-02-04 08:00 | Outpatient (CLI) | payer MEDICARE, OTHER | END 2021-02-04 23:59 | disposition home or self-care (01) | LOC: LAB.N 08:00 | PROVIDERS: ATTEND Physician Assistant Medical | DX: Z79.01 Long term (current) use of anticoagulants (principal); I82.90 Acute embolism and thrombosis of unspecified vein ==

== ENCOUNTER 2021-03-04 08:00 | Outpatient (CLI) | payer MEDICARE, OTHER | END 2021-03-04 23:59 | disposition home or self-care (01) | LOC: LAB.N 08:00 | PROVIDERS: ATTEND Physician Assistant Medical | DX: Z79.01 Long term (current) use of anticoagulants (principal); I82.90 Acute embolism and thrombosis of unspecified vein ==

== ENCOUNTER 2021-04-21 11:36 | Outpatient (CLI) | payer MEDICARE, OTHER ==
[2021-04-21 18:17] LABS: CREATININE,URINE 161.5 mg/dL; MICROALBUM/CREATININE RATIO,UR 11.1 ug/mg (<30.0); MICROALBUMIN,URINE 1.8 mg/dL (0-300.0)
[2021-04-21 18:19] LABS: ALBUMIN 4.4 g/dL (3.2-5.5); ALBUMIN/GLOBULIN RATIO 1.4 (1.0-2.2); ALKALINE PHOSPHATASE 65 IU/L (42-121); ALT ALANINE AMINOTRANSFERASE 14 IU/L (10-60); AST ASPARTATE AMINOTRANSFERASE 14 IU/L (10-42); BILIRUBIN,TOTAL 0.5 mg/dL (0.2-1.0); BUN - BLOOD UREA NITROGEN 13 mg/dL (6-20); CALCIUM 9.2 mg/dL (8.5-10.3); CARBON DIOXIDE - CO2 31 mmol/L (21-32); CHLORIDE 102 mmol/L (101-111); CHOL/HDL RATIO 5.2 (<5.0); CHOLESTEROL 177 mg/dL; CREATININE 0.8 mg/dL (0.6-1.2); GFR - MDRD 94 (>89); GLUCOSE 104 mg/dL (70-100); HDL CHOLESTEROL 34 mg/dL; LDL CHOLESTEROL,CALCULATED 112 mg/dL; LDL/HDL RATIO 3.3 (<3.6); POTASSIUM 4.1 mmol/L (3.5-5.0); SODIUM 140 mmol/L (135-145); TOTAL PROTEIN 7.6 g/dL (6.7-8.2); TRIGLYCERIDES 155 mg/dL; VLDL CHOLESTEROL 31 mg/dL
[2021-04-21 20:23] LABS: ESTIMATED AVERAGE GLUCOSE 120 mg/dL (70-100); HEMOGLOBIN A1c% 5.8 % (4.27-6.07)
== END 2021-04-21 11:37 | disposition home or self-care (01) ==
LOC: LAB.N 11:36
PROVIDERS: ATTEND Physician Assistant Medical
DX: E11.9 Type 2 diabetes mellitus without complications (principal)
CPT/HCPCS: 36415; 80053; 80061; 82043; 82570; 83036; 83721

== ENCOUNTER 2021-04-25 13:25 | Outpatient (CLI) | payer MEDICARE, OTHER | END 2021-04-25 13:26 | disposition home or self-care (01) | LOC: LAB.N 13:25 | PROVIDERS: ATTEND Physician Assistant Medical | DX: Z79.01 Long term (current) use of anticoagulants (principal) | CPT/HCPCS: 85610 ==

== ENCOUNTER 2021-05-30 08:00 | Outpatient (CLI) | payer MEDICARE, OTHER | END 2021-05-30 23:59 | disposition home or self-care (01) | LOC: LAB.WCP 08:00 | PROVIDERS: ATTEND Physician Assistant Medical | DX: Z79.01 Long term (current) use of anticoagulants (principal); I82.90 Acute embolism and thrombosis of unspecified vein ==

== ENCOUNTER 2021-07-04 08:00 | Outpatient (CLI) | payer MEDICARE, OTHER | END 2021-07-04 23:59 | disposition home or self-care (01) | LOC: LAB.N 08:00 | PROVIDERS: ATTEND Physician Assistant Medical | DX: I82.409 Acute embolism and thrombosis of unspecified deep veins of unspecified lower extremity (principal); Z79.01 Long term (current) use of anticoagulants ==

== ENCOUNTER 2021-08-29 08:00 | Outpatient (CLI) | payer MEDICARE, OTHER | END 2021-08-29 23:59 | disposition home or self-care (01) | LOC: LAB.N 08:00 | PROVIDERS: ATTEND Physician Assistant Medical | DX: I82.409 Acute embolism and thrombosis of unspecified deep veins of unspecified lower extremity (principal); Z79.01 Long term (current) use of anticoagulants ==

== ENCOUNTER 2021-09-05 08:00 | Outpatient (CLI) | payer MEDICARE, OTHER | END 2021-09-05 23:59 | disposition home or self-care (01) | LOC: LAB.N 08:00 | PROVIDERS: ATTEND Physician Assistant Medical | DX: I82.409 Acute embolism and thrombosis of unspecified deep veins of unspecified lower extremity (principal); Z79.01 Long term (current) use of anticoagulants ==

== ENCOUNTER 2021-10-21 11:33 | Outpatient (CLI) | payer MEDICARE, OTHER ==
[2021-10-21 18:41] LABS: BASOPHILS # (AUTO) 0.1 10^3/uL (0.0-0.1); BASOPHILS % (AUTO) 0.6 %; EOSINOPHILS # (AUTO) 0.2 10^3/uL (0.0-0.7); EOSINOPHILS % (AUTO) 1.4 %; HCT - HEMATOCRIT 54.4 % (42.0-52.0); HGB - HEMOGLOBIN 18.1 g/dL (14.0-18.0); LYMPHOCYTES # (AUTO) 2.6 10^3/uL (1.5-3.5); LYMPHOCYTES % (AUTO) 24.2 %; MEAN CORPUSCULAR HGB CONC 33.3 g/dL (32.0-36.0); MEAN CORPUSCULAR VOLUME 96.1 fL (80.0-94.0); MEAN PLATELET VOLUME 10.8 fL (7.4-11.4); MONOCYTES # (AUTO) 0.7 10^3/uL (0.0-1.0); MONOCYTES % (AUTO) 6.2 %; NEUTROPHILS # (AUTO) 7.1 10^3/uL (1.5-6.6); NEUTROPHILS % (AUTO) 67.2 %; PLT - PLATELET COUNT 193 10^3/uL (130-450); RED BLOOD COUNT 5.66 10^6/uL (4.70-6.10); RED CELL DISTRIBUTION WIDTH 13.3 % (12.0-15.0); WHITE BLOOD COUNT 10.5 x10^3/uL (4.8-10.8)
[2021-10-21 19:00] LABS: ALBUMIN 4.3 g/dL (3.2-5.5); ALBUMIN/GLOBULIN RATIO 1.3 (1.0-2.2); ALKALINE PHOSPHATASE 57 IU/L (42-121); ALT ALANINE AMINOTRANSFERASE 17 IU/L (10-60); AST ASPARTATE AMINOTRANSFERASE 15 IU/L (10-42); BILIRUBIN,TOTAL 0.6 mg/dL (0.2-1.0); BUN - BLOOD UREA NITROGEN 12 mg/dL (6-20); CARBON DIOXIDE - CO2 28 mmol/L (21-32); CHLORIDE 101 mmol/L (101-111); CHOL/HDL RATIO 4.5 (<5.0); CHOLESTEROL 175 mg/dL; CREATININE 0.8 mg/dL (0.6-1.2); GFR - MDRD 94 (>89); GLUCOSE 94 mg/dL (70-100); HDL CHOLESTEROL 39 mg/dL; LDL CHOLESTEROL,CALCULATED 112 mg/dL; LDL/HDL RATIO 2.9 (<3.6); POTASSIUM 3.9 mmol/L (3.5-5.0); SODIUM 139 mmol/L (135-145); TOTAL PROTEIN 7.6 g/dL (6.7-8.2); TRIGLYCERIDES 119 mg/dL; VLDL CHOLESTEROL 24 mg/dL
[2021-10-21 19:13] LABS: THYROID STIMULATING HORMONE 2.45 uIU/mL (0.34-5.60)
[2021-10-21 19:25] LABS: ESTIMATED AVERAGE GLUCOSE 126 mg/dL (70-100)
== END 2021-10-21 11:34 | disposition home or self-care (01) ==
LOC: LAB.N 11:33
PROVIDERS: ATTEND Physician Assistant Medical
DX: E11.9 Type 2 diabetes mellitus without complications (principal); E78.1 Pure hyperglyceridemia; K92.2 Gastrointestinal hemorrhage, unspecified
CPT/HCPCS: 36415; 80053; 80061; 83036; 83721; 84443; 85025

== ENCOUNTER 2021-10-31 08:00 | Outpatient (CLI) | payer MEDICARE, OTHER | END 2021-10-31 23:59 | disposition home or self-care (01) | LOC: LAB.N 08:00 | PROVIDERS: ATTEND Physician Assistant Medical | DX: I82.409 Acute embolism and thrombosis of unspecified deep veins of unspecified lower extremity (principal); Z79.01 Long term (current) use of anticoagulants ==

== ENCOUNTER 2021-11-21 08:00 | Outpatient (CLI) | payer MEDICARE, OTHER | END 2021-11-21 23:59 | disposition home or self-care (01) | LOC: LAB.WCP 08:00 | PROVIDERS: ATTEND Physician Assistant Medical | DX: I82.409 Acute embolism and thrombosis of unspecified deep veins of unspecified lower extremity (principal); Z79.01 Long term (current) use of anticoagulants ==

== ENCOUNTER 2022-01-25 10:39 | Outpatient (CLI) | payer MEDICARE, OTHER ==
[2022-01-25 12:19] LABS: ESTIMATED AVERAGE GLUCOSE 123 mg/dL (70-100); HEMOGLOBIN A1c% 5.9 % (4.27-6.07)
[2022-01-25 12:47] LABS: ALBUMIN 4.3 g/dL (3.2-5.5); ALBUMIN/GLOBULIN RATIO 1.4 (1.0-2.2); ALKALINE PHOSPHATASE 54 IU/L (42-121); ALT ALANINE AMINOTRANSFERASE 18 IU/L (10-60); AST ASPARTATE AMINOTRANSFERASE 15 IU/L (10-42); BILIRUBIN,TOTAL 0.5 mg/dL (0.2-1.0); BUN - BLOOD UREA NITROGEN 17 mg/dL (6-20); CALCIUM 9.1 mg/dL (8.5-10.3); CARBON DIOXIDE - CO2 30 mmol/L (21-32); CHLORIDE 102 mmol/L (101-111); CHOL/HDL RATIO 4.7 (<5.0); CHOLESTEROL 161 mg/dL; CREATININE 0.9 mg/dL (0.6-1.2); GFR - MDRD 82 (>89); GLUCOSE 109 mg/dL (70-100); HDL CHOLESTEROL 34 mg/dL; LDL CHOLESTEROL,CALCULATED 98 mg/dL; LDL/HDL RATIO 2.9 (<3.6); POTASSIUM 4.1 mmol/L (3.5-5.0); SODIUM 141 mmol/L (135-145); TOTAL PROTEIN 7.4 g/dL (6.7-8.2); TRIGLYCERIDES 143 mg/dL; VLDL CHOLESTEROL 29 mg/dL
== END 2022-01-25 10:40 | disposition home or self-care (01) ==
LOC: LAB.N 10:39
PROVIDERS: ATTEND Physician Assistant Medical
DX: I25.10 Atherosclerotic heart disease of native coronary artery without angina pectoris (principal); E11.9 Type 2 diabetes mellitus without complications
CPT/HCPCS: 36415; 80053; 80061; 83036; 83721

== ENCOUNTER 2022-02-22 08:00 | Outpatient (CLI) | payer MEDICARE, OTHER | END 2022-02-22 23:59 | disposition home or self-care (01) | LOC: LAB.N 08:00 | PROVIDERS: ATTEND Physician Assistant Medical | DX: I82.409 Acute embolism and thrombosis of unspecified deep veins of unspecified lower extremity (principal); Z79.01 Long term (current) use of anticoagulants ==

== ENCOUNTER 2022-04-05 08:00 | Outpatient (CLI) | payer MEDICARE, OTHER | END 2022-04-05 23:59 | disposition home or self-care (01) | LOC: LAB 08:00 → LAB.WCP 23:59 | PROVIDERS: ATTEND Physician Assistant Medical | DX: Z79.01 Long term (current) use of anticoagulants (principal); I82.90 Acute embolism and thrombosis of unspecified vein ==

== ENCOUNTER 2022-04-12 08:00 | Outpatient (CLI) | payer MEDICARE, OTHER | END 2022-04-12 08:01 | disposition home or self-care (01) | LOC: LAB.N 08:00 | PROVIDERS: ATTEND Physician Assistant Medical | DX: Z79.01 Long term (current) use of anticoagulants (principal); I82.90 Acute embolism and thrombosis of unspecified vein ==

== ENCOUNTER 2022-05-19 08:00 | Outpatient (CLI) | payer MEDICARE, OTHER | END 2022-05-19 23:59 | disposition home or self-care (01) | LOC: LAB.WCP 08:00 | PROVIDERS: ATTEND Family Medicine | DX: Z79.01 Long term (current) use of anticoagulants (principal); I72.4 Aneurysm of artery of lower extremity; I73.9 Peripheral vascular disease, unspecified; I82.409 Acute embolism and thrombosis of unspecified deep veins of unspecified lower extremity ==

== ENCOUNTER → 2022-06-14 | Outpatient (CLI) | payer MEDICARE, OTHER | LOC: LAB.WCP 08:00 | PROVIDERS: ATTEND Physician Assistant Medical | DX: Z79.01 Long term (current) use of anticoagulants (principal); I82.409 Acute embolism and thrombosis of unspecified deep veins of unspecified lower extremity ==

== ENCOUNTER → 2022-06-28 | Outpatient (CLI) | payer MEDICARE, OTHER | LOC: LAB.WCP 08:00 | PROVIDERS: ATTEND Family Medicine | DX: Z79.01 Long term (current) use of anticoagulants (principal); I82.409 Acute embolism and thrombosis of unspecified deep veins of unspecified lower extremity ==

== ENCOUNTER → 2022-07-12 | Outpatient (CLI) | payer MEDICARE, OTHER | LOC: LAB.WCP 08:00 | PROVIDERS: ATTEND Family Medicine | DX: Z79.01 Long term (current) use of anticoagulants (principal); I82.409 Acute embolism and thrombosis of unspecified deep veins of unspecified lower extremity ==

== ENCOUNTER 2022-07-28 09:42 | Outpatient (CLI) | payer MEDICARE, OTHER ==
[2022-07-28 12:06] LABS: ESTIMATED AVERAGE GLUCOSE 131 mg/dL (70-100); HEMOGLOBIN A1c% 6.2 % (4.27-6.07)
[2022-07-28 12:10] LABS: ALBUMIN/GLOBULIN RATIO 1.2 (1.0-2.2); ALKALINE PHOSPHATASE 62 IU/L (42-121); ALT ALANINE AMINOTRANSFERASE 17 IU/L (10-60); AST ASPARTATE AMINOTRANSFERASE 18 IU/L (10-42); BILIRUBIN,TOTAL 0.7 mg/dL (0.2-1.0); BUN - BLOOD UREA NITROGEN 13 mg/dL (6-20); CALCIUM 8.9 mg/dL (8.5-10.3); CARBON DIOXIDE - CO2 31 mmol/L (21-32); CHLORIDE 103 mmol/L (101-111); CHOL/HDL RATIO 4.2 (<5.0); CHOLESTEROL 150 mg/dL; CREATININE 0.9 mg/dL (0.6-1.2); GFR - MDRD 82 (>89); GLUCOSE 110 mg/dL (70-100); HDL CHOLESTEROL 36 mg/dL; LDL CHOLESTEROL,CALCULATED 89 mg/dL; LDL/HDL RATIO 2.5 (<3.6); POTASSIUM 3.9 mmol/L (3.5-5.0); SODIUM 141 mmol/L (135-145); TOTAL PROTEIN 7.3 g/dL (6.7-8.2); TRIGLYCERIDES 123 mg/dL; VLDL CHOLESTEROL 25 mg/dL
== END 2022-07-28 09:43 | disposition home or self-care (01) ==
LOC: LAB.N 09:42
PROVIDERS: ATTEND Physician Assistant Medical
DX: E11.9 Type 2 diabetes mellitus without complications (principal)
CPT/HCPCS: 36415; 80053; 80061; 83036; 83721

== ENCOUNTER 2022-09-06 08:00 | Outpatient (CLI) | payer MEDICARE, OTHER | END 2022-09-06 23:59 | disposition home or self-care (01) | LOC: LAB.N 08:00 → LAB.WCP 23:59 | PROVIDERS: ATTEND Family Medicine | DX: Z79.01 Long term (current) use of anticoagulants (principal); I82.409 Acute embolism and thrombosis of unspecified deep veins of unspecified lower extremity ==

== ENCOUNTER 2022-10-18 08:00 | Outpatient (CLI) | payer MEDICARE, OTHER | END 2022-10-18 23:59 | disposition home or self-care (01) | LOC: LAB.N 08:00 | PROVIDERS: ATTEND Physician Assistant Medical | DX: Z79.01 Long term (current) use of anticoagulants (principal); I82.409 Acute embolism and thrombosis of unspecified deep veins of unspecified lower extremity ==

== ENCOUNTER 2022-11-17 08:00 | Outpatient (CLI) | payer MEDICARE, OTHER | END 2022-11-17 23:59 | disposition home or self-care (01) | LOC: LAB.N 08:00 | PROVIDERS: ATTEND Physician Assistant Medical | DX: Z79.01 Long term (current) use of anticoagulants (principal); I82.409 Acute embolism and thrombosis of unspecified deep veins of unspecified lower extremity ==

== ENCOUNTER 2023-01-26 12:54 | Outpatient (CLI) | payer MEDICARE, OTHER ==
[2023-01-26 17:51] LABS: INR 1.9 (0.8-1.2); PT - PROTHROMBIN TIME 19.5 secs (9.9-12.6)
[2023-01-26 17:57] LABS: ALBUMIN 3.8 g/dL (3.2-5.5); ALBUMIN/GLOBULIN RATIO 1.2 (1.0-2.2); ALKALINE PHOSPHATASE 60 IU/L (42-121); ALT ALANINE AMINOTRANSFERASE 18 IU/L (10-60); AST ASPARTATE AMINOTRANSFERASE 17 IU/L (10-42); BILIRUBIN,TOTAL 0.5 mg/dL (0.2-1.0); BUN - BLOOD UREA NITROGEN 13 mg/dL (6-20); CALCIUM 8.9 mg/dL (8.5-10.3); CARBON DIOXIDE - CO2 29 mmol/L (21-32); CHLORIDE 105 mmol/L (101-111); CHOL/HDL RATIO 4.1 (<5.0); CHOLESTEROL 139 mg/dL; CREATININE 0.8 mg/dL (0.6-1.2); ESTIMATED AVERAGE GLUCOSE 120 mg/dL (70-100); GFR - MDRD 93 (>89); GLUCOSE 102 mg/dL (70-100); HDL CHOLESTEROL 34 mg/dL; HEMOGLOBIN A1c% 5.8 % (4.27-6.07); LDL CHOLESTEROL,CALCULATED 81 mg/dL; LDL/HDL RATIO 2.4 (<3.6); POTASSIUM 4.2 mmol/L (3.5-5.0); SODIUM 140 mmol/L (135-145); TOTAL PROTEIN 6.9 g/dL (6.7-8.2); TRIGLYCERIDES 122 mg/dL; VLDL CHOLESTEROL 24 mg/dL
== END 2023-01-26 12:55 | disposition home or self-care (01) ==
LOC: LAB.N 12:54
PROVIDERS: ATTEND Physician Assistant Medical
DX: Z79.01 Long term (current) use of anticoagulants (principal); I82.90 Acute embolism and thrombosis of unspecified vein; E11.9 Type 2 diabetes mellitus without complications
CPT/HCPCS: 36415; 80053; 80061; 83036; 83721; 85610

== ENCOUNTER 2023-01-31 08:00 | Outpatient (CLI) | payer MEDICARE, OTHER | END 2023-01-31 23:59 | disposition home or self-care (01) | LOC: LAB.WCP 08:00 | PROVIDERS: ATTEND Family Medicine | DX: Z79.01 Long term (current) use of anticoagulants (principal); I82.409 Acute embolism and thrombosis of unspecified deep veins of unspecified lower extremity ==

== ENCOUNTER 2023-02-12 08:00 | Outpatient (CLI) | payer MEDICARE, OTHER | END 2023-02-12 23:59 | disposition home or self-care (01) | LOC: LAB.N 08:00 | PROVIDERS: ATTEND Physician Assistant Medical | DX: Z79.01 Long term (current) use of anticoagulants (principal); I82.409 Acute embolism and thrombosis of unspecified deep veins of unspecified lower extremity ==

== ENCOUNTER 2023-03-04 16:05 | Outpatient (CLI) | payer MEDICARE, OTHER | END 2023-03-04 23:59 | disposition EMS.NT | LOC: EMS 16:05 | DX: T63.441A Toxic effect of venom of bees, accidental (unintentional), initial encounter (principal) ==

== ENCOUNTER 2023-05-23 08:00 | Outpatient (CLI) | payer MEDICARE, OTHER | END 2023-05-23 23:59 | disposition home or self-care (01) | LOC: LAB.N 08:00 | PROVIDERS: ATTEND Physician Assistant Medical | DX: Z79.01 Long term (current) use of anticoagulants (principal); I82.409 Acute embolism and thrombosis of unspecified deep veins of unspecified lower extremity ==

== ENCOUNTER 2023-07-18 13:01 | Outpatient (CLI) | payer MEDICARE, OTHER | END 2023-07-18 13:02 | disposition home or self-care (01) | LOC: LAB.N 13:01 | PROVIDERS: ATTEND Physician Assistant Medical | DX: Z51.81 Encounter for therapeutic drug level monitoring (principal); Z79.01 Long term (current) use of anticoagulants | CPT/HCPCS: 36416; 85610 ==

== ENCOUNTER 2023-07-27 09:05 | Outpatient (CLI) | payer MEDICARE, OTHER ==
[2023-07-27 12:33] LABS: BASOPHILS # (AUTO) 0.1 10^3/uL (0.0-0.1); BASOPHILS % (AUTO) 0.7 %; EOSINOPHILS # (AUTO) 0.1 10^3/uL (0.0-0.7); EOSINOPHILS % (AUTO) 1.4 %; HGB - HEMOGLOBIN 17.5 g/dL (14.0-18.0); LYMPHOCYTES # (AUTO) 2.9 10^3/uL (1.5-3.5); LYMPHOCYTES % (AUTO) 28.8 %; MEAN CORPUSCULAR HEMOGLOBIN 30.7 pg (27.0-31.0); MEAN CORPUSCULAR HGB CONC 31.8 g/dL (32.0-36.0); MEAN CORPUSCULAR VOLUME 96.5 fL (80.0-94.0); MEAN PLATELET VOLUME 10.1 fL (7.4-11.4); MONOCYTES # (AUTO) 0.7 10^3/uL (0.0-1.0); NEUTROPHILS # (AUTO) 6.2 10^3/uL (1.5-6.6); NEUTROPHILS % (AUTO) 61.9 %; PLT - PLATELET COUNT 200 10^3/uL (130-450); RED CELL DISTRIBUTION WIDTH 13.3 % (12.0-15.0)
[2023-07-27 13:32] LABS: ESTIMATED AVERAGE GLUCOSE 123 mg/dL (70-100); HEMOGLOBIN A1c% 5.9 % (4.27-6.07)
[2023-07-27 13:37] LABS: ALBUMIN 4.3 g/dL (3.2-5.5); ALBUMIN/GLOBULIN RATIO 1.4 (1.0-2.2); ALKALINE PHOSPHATASE 61 IU/L (42-121); ALT ALANINE AMINOTRANSFERASE 10 IU/L (10-60); AST ASPARTATE AMINOTRANSFERASE 11 IU/L (10-42); BILIRUBIN,TOTAL 0.6 mg/dL (0.2-1.0); BUN - BLOOD UREA NITROGEN 14 mg/dL (6-20); CALCIUM 9.7 mg/dL (8.5-10.3); CARBON DIOXIDE - CO2 27 mmol/L (21-32); CHLORIDE 106 mmol/L (101-111); CHOL/HDL RATIO 4.9 (<5.0); CHOLESTEROL 151 mg/dL; CREATININE 0.8 mg/dL (0.6-1.3); GFR - MDRD 93 (>89); GLUCOSE 112 mg/dL (74-104); HDL CHOLESTEROL 31 mg/dL; LDL CHOLESTEROL,CALCULATED 91 mg/dL; LDL/HDL RATIO 2.9 (<3.6); POTASSIUM 3.7 mmol/L (3.5-4.5); SODIUM 141 mmol/L (135-145); TOTAL PROTEIN 7.3 g/dL (6.4-8.9); TRIGLYCERIDES 146 mg/dL (48-352); VLDL CHOLESTEROL 29 mg/dL
== END 2023-07-27 09:06 | disposition home or self-care (01) ==
LOC: LAB.N 09:05
PROVIDERS: ATTEND Physician Assistant Medical
DX: E11.9 Type 2 diabetes mellitus without complications (principal); K92.2 Gastrointestinal hemorrhage, unspecified
CPT/HCPCS: 36415; 80053; 80061; 83036; 83721; 85025

== ENCOUNTER → 2023-07-27 | Outpatient (CLI) | payer MEDICARE, OTHER | LOC: LAB.WCP 08:00 | PROVIDERS: ATTEND Physician Assistant | DX: I82.409 Acute embolism and thrombosis of unspecified deep veins of unspecified lower extremity (principal); Z79.01 Long term (current) use of anticoagulants ==

== ENCOUNTER 2023-08-24 08:00 | Outpatient (CLI) | payer MEDICARE, OTHER | END 2023-08-24 08:01 | disposition home or self-care (01) | LOC: LAB.N 08:00 → LAB.WCP 08:01 | PROVIDERS: ATTEND Physician Assistant Medical | DX: I82.409 Acute embolism and thrombosis of unspecified deep veins of unspecified lower extremity (principal); Z79.01 Long term (current) use of anticoagulants ==

== ENCOUNTER 2023-08-27 15:09 | Emergency (ER) | payer OTHER, MEDICARE ==
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
[2023-08-27 15:51] LABS: BILIRUBIN,URINE NEGATIVE (NEGATIVE); GLUCOSE, URINE (UA) NEGATIVE (NEGATIVE); KETONES,URINE (UA) NEGATIVE (NEGATIVE); LEUKOCYTE ESTERASE, URINE TRACE (NEGATIVE); NITRITE,URINE NEGATIVE (NEGATIVE); OCCULT BLOOD,URINE MODERATE (NEGATIVE); PROTEIN,URINE NEGATIVE (NEGATIVE); UROBILINOGEN,URINE 1 (NORMAL) E.U./dL (NORMAL)
[2023-08-27 15:53] LABS: CLARITY,URINE HAZY (CLEAR)
[2023-08-27 16:08] LABS: BACTERIA,URINE Moderate /HPF (None Seen); SQUAMOUS EPITHELIAL CELL,UR FEW Squamous (<= Few)
[2023-08-27] MEDS ORDERED: iohexoL-300 100 ML VIAL ONE (16:16)
[2023-08-27 16:22] LABS: BASOPHILS # (AUTO) 0.1 10^3/uL (0.0-0.1); BASOPHILS % (AUTO) 0.6 %; EOSINOPHILS # (AUTO) 0.1 10^3/uL (0.0-0.7); EOSINOPHILS % (AUTO) 1.3 %; HCT - HEMATOCRIT 50.5 % (42.0-52.0); HGB - HEMOGLOBIN 16.4 g/dL (14.0-18.0); LYMPHOCYTES # (AUTO) 2.4 10^3/uL (1.5-3.5); LYMPHOCYTES % (AUTO) 24.8 %; MEAN CORPUSCULAR HEMOGLOBIN 30.1 pg (27.0-31.0); MEAN CORPUSCULAR HGB CONC 32.5 g/dL (32.0-36.0); MEAN CORPUSCULAR VOLUME 92.8 fL (80.0-94.0); MEAN PLATELET VOLUME 9.5 fL (7.4-11.4); MONOCYTES # (AUTO) 0.6 10^3/uL (0.0-1.0); MONOCYTES % (AUTO) 6.7 %; NEUTROPHILS # (AUTO) 6.3 10^3/uL (1.5-6.6); NEUTROPHILS % (AUTO) 66.3 %; PLT - PLATELET COUNT 160 10^3/uL (130-450); RED BLOOD COUNT 5.44 10^6/uL (4.70-6.10); RED CELL DISTRIBUTION WIDTH 13.2 % (12.0-15.0); WHITE BLOOD COUNT 9.5 x10^3/uL (4.8-10.8)
[2023-08-27 16:28] LABS: INR 2.4 (0.8-1.2); PT - PROTHROMBIN TIME 24.2 secs (9.9-12.6)
[2023-08-27 16:56] LABS: ALBUMIN 3.8 g/dL (3.2-5.5); ALBUMIN/GLOBULIN RATIO 1.3 (1.0-2.2); BILIRUBIN,TOTAL 0.4 mg/dL (0.2-1.0); CALCIUM 8.8 mg/dL (8.5-10.3); CREATININE 0.6 mg/dL (0.6-1.3); POTASSIUM 3.8 mmol/L (3.5-4.5); TOTAL PROTEIN 6.8 g/dL (6.4-8.9)
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
[2023-08-27 19:02] VITALS: BP 147/81; O2SAT 98
[2023-08-27] MEDS ORDERED: iohexoL-300 100 ML VIAL IVP ONE (19:44)
== END 2023-08-27 18:56 | disposition home or self-care (01) ==
LOC: ED 15:09
DX: S20.211A Contusion of right front wall of thorax, initial encounter (principal); V49.9XXA Car occupant (driver) (passenger) injured in unspecified traffic accident, initial encounter; R19.00 Intra-abdominal and pelvic swelling, mass and lump, unspecified site; I71.40 Abdominal aortic aneurysm, without rupture, unspecified; E11.9 Type 2 diabetes mellitus without complications; I10 Essential (primary) hypertension; Z86.718 Personal history of other venous thrombosis and embolism; Z79.01 Long term (current) use of anticoagulants; F17.200 Nicotine dependence, unspecified, uncomplicated
CPT/HCPCS: 36415; 71260; 74177; 80053; 81001; 83690; 85025; 85610; 87086; 99284; Q9967; 81003

== ENCOUNTER 2023-10-17 08:00 | Outpatient (CLI) | payer MEDICARE, OTHER | END 2023-10-17 08:01 | disposition home or self-care (01) | LOC: LAB.N 08:00 | PROVIDERS: ATTEND Physician Assistant Medical | DX: I82.409 Acute embolism and thrombosis of unspecified deep veins of unspecified lower extremity (principal); Z79.01 Long term (current) use of anticoagulants ==

== ENCOUNTER 2023-11-12 08:00 | Outpatient (CLI) | payer MEDICARE, OTHER | END 2023-11-12 08:01 | disposition home or self-care (01) | LOC: LAB.N 08:00 | PROVIDERS: ATTEND Physician Assistant Medical | DX: I82.409 Acute embolism and thrombosis of unspecified deep veins of unspecified lower extremity (principal); Z79.01 Long term (current) use of anticoagulants ==

== ENCOUNTER 2023-12-12 08:00 | Outpatient (CLI) | payer MEDICARE, OTHER | END 2023-12-12 08:01 | disposition home or self-care (01) | LOC: LAB.N 08:00 | PROVIDERS: ATTEND Physician Assistant Medical | DX: I82.409 Acute embolism and thrombosis of unspecified deep veins of unspecified lower extremity (principal) ==

== ENCOUNTER → 2023-12-26 | Outpatient (CLI) | payer MEDICARE, OTHER | LOC: LAB.WCP 08:00 | PROVIDERS: ATTEND Physician Assistant Medical | DX: I82.409 Acute embolism and thrombosis of unspecified deep veins of unspecified lower extremity (principal); Z79.01 Long term (current) use of anticoagulants ==

== ENCOUNTER 2024-01-23 09:57 | Outpatient (CLI) | payer MEDICARE, OTHER ==
[2024-01-23 11:48] LABS: BASOPHILS # (AUTO) 0.1 10^3/uL (0.0-0.1); BASOPHILS % (AUTO) 0.6 %; EOSINOPHILS # (AUTO) 0.1 10^3/uL (0.0-0.7); EOSINOPHILS % (AUTO) 0.8 %; HCT - HEMATOCRIT 51.4 % (42.0-52.0); HGB - HEMOGLOBIN 16.5 g/dL (14.0-18.0); LYMPHOCYTES # (AUTO) 2.1 10^3/uL (1.5-3.5); LYMPHOCYTES % (AUTO) 26.6 %; MEAN CORPUSCULAR HEMOGLOBIN 30.6 pg (27.0-31.0); MEAN CORPUSCULAR HGB CONC 32.1 g/dL (32.0-36.0); MEAN CORPUSCULAR VOLUME 95.4 fL (80.0-94.0); MEAN PLATELET VOLUME 10.5 fL (7.4-11.4); MONOCYTES # (AUTO) 0.5 10^3/uL (0.0-1.0); MONOCYTES % (AUTO) 6.4 %; NEUTROPHILS # (AUTO) 5.1 10^3/uL (1.5-6.6); NEUTROPHILS % (AUTO) 65.2 %; PLT - PLATELET COUNT 178 10^3/uL (130-450); RED BLOOD COUNT 5.39 10^6/uL (4.70-6.10); RED CELL DISTRIBUTION WIDTH 13.9 % (12.0-15.0); WHITE BLOOD COUNT 7.8 x10^3/uL (4.8-10.8)
[2024-01-23 12:18] LABS: ESTIMATED AVERAGE GLUCOSE 114 mg/dL (70-100); HEMOGLOBIN A1c% 5.6 % (4.27-6.07)
[2024-01-23 12:20] LABS: ALBUMIN 4.1 g/dL (3.2-5.5); ALBUMIN/GLOBULIN RATIO 1.6 (1.0-2.2); ALKALINE PHOSPHATASE 47 IU/L (42-121); ALT ALANINE AMINOTRANSFERASE 10 IU/L (10-60); AST ASPARTATE AMINOTRANSFERASE 12 IU/L (10-42); BILIRUBIN,TOTAL 0.4 mg/dL (0.2-1.0); BUN - BLOOD UREA NITROGEN 14 mg/dL (6-20); CARBON DIOXIDE - CO2 28 mmol/L (21-32); CHLORIDE 107 mmol/L (101-111); CHOL/HDL RATIO 4.1 (<5.0); CHOLESTEROL 143 mg/dL; CREATININE 0.9 mg/dL (0.6-1.3); FERRITIN 69.9 ng/mL (23.9-336.2); GFR - MDRD 81 (>89); GLUCOSE 106 mg/dL (74-104); HDL CHOLESTEROL 35 mg/dL; LDL CHOLESTEROL,CALCULATED 83 mg/dL; LDL/HDL RATIO 2.4 (<3.6); SODIUM 141 mmol/L (135-145); TOTAL PROTEIN 6.7 g/dL (6.4-8.9); TRIGLYCERIDES 123 mg/dL (48-352); VLDL CHOLESTEROL 25 mg/dL
== END 2024-01-23 09:58 | disposition home or self-care (01) ==
LOC: LAB.N 09:57
PROVIDERS: ATTEND Physician Assistant Medical
DX: I10 Essential (primary) hypertension (principal); K92.2 Gastrointestinal hemorrhage, unspecified; E11.9 Type 2 diabetes mellitus without complications
CPT/HCPCS: 36415; 80053; 80061; 82728; 83036; 83721; 85025

== ENCOUNTER 2024-03-26 08:00 | Outpatient (CLI) | payer MEDICARE, OTHER | END 2024-03-26 23:59 | disposition home or self-care (01) | LOC: LAB.WCP 08:00 | PROVIDERS: ATTEND Physician Assistant Medical | DX: I82.409 Acute embolism and thrombosis of unspecified deep veins of unspecified lower extremity (principal); Z79.01 Long term (current) use of anticoagulants ==